=== PATIENT | male | born 1935 | race Caucasian/White ===

== ENCOUNTER → 2016-08-25 | Outpatient (CLI) | payer MEDICARE, BC ==
[~2016-08-25] VITALS: Ht 185.4 cm; Wt 110.0 kg
[~2016-08-25] MED LIST: ALLO300T74 PO; ASPI-730 PO; ATOR10TA20 PO; BISA-82 PO; FAMO20TA79 PO; INSU100I14 SQ; INSU100V SQ; INSU100V12 SQ; IRBE75TA10 PO; MULT-806 PO; NEOMYCIN/POLYM/BACITR OINT PACKET TOP ONE; OXYC10TA51 PO; OXYC1TAB11 PO; POLY17PO6 PO; POTA10TA14 PO; SENN-156 PO; SPIR25TA4 PO; TAMS-1 PO
[2016-08-25 14:18] VITALS: BP 123/78; PULSE 112; RESP 16; TEMP 96.9; O2SAT 95
[2016-08-25 14:22] VITALS: Ht 185.4 cm; Wt 110.0 kg
== END ==
LOC: INF.THER 13:56
PROVIDERS: ATTEND Internal Medicine Infectious Disease
DX: M86.9 Osteomyelitis, unspecified (principal)
CPT/HCPCS: A9270; G0463; 99211

== ENCOUNTER → 2016-08-26 | Outpatient (CLI) | payer MEDICARE, BC ==
[~2016-08-26] MED LIST changes: -ASPI-730 PO; -FAMO20TA79 PO; -INSU100I14 SQ; -INSU100V SQ; -IRBE75TA10 PO; -NEOMYCIN/POLYM/BACITR OINT PACKET TOP ONE
[2016-08-26 07:40] LABS: BASOPHILS % (AUTO) 0.2 % (0-2); EOSINOPHILS # (AUTO) 0.1 T/MM3 (0-0.5); EOSINOPHILS % (AUTO) 2.9 % (0-4); HCT - HEMATOCRIT 41.5 % (41-53); HGB - HEMOGLOBIN 13.9 GM/DL (13.5-17.5); IMMATURE GRANULOCYTE # (AUTO) 0.01 T/MM3 (0.00-0.03); IMMATURE GRANULOCYTE % (AUTO) 0.2 % (0.0-0.5); LYMPHOCYTES # (AUTO) 1.6 T/MM3 (1-4.8); LYMPHOCYTES % (AUTO) 32.9 % (23-45); MEAN CORPUSCULAR HGB 32.9 UUG (26-34); MEAN CORPUSCULAR HGB CONC(MCHC 33.5 GM/DL (31-37); MEAN CORPUSCULAR VOLUME 98.3 UM3 (80-100); MONOCYTES # (AUTO) 0.4 T/MM3 (0-0.8); MONOCYTES % (AUTO) 7.3 % (0-9.0); NEUTROPHILS #(AUTO)-ABSOLUTE 2.8 T/MM3 (1.8-7.7); NEUTROPHILS % (AUTO) 56.5 % (33-66); RED BLOOD COUNT 4.22 M/MM3 (4.50-5.90); WBC - WHITE BLOOD COUNT 4.9 T/MM3 (4.5-11.0)
[2016-08-26 07:58] LABS: ANION GAP 6 MEQ/L (5-15); BUN/CREATININE RATIO 20 RATIO (6-26); C-REACTIVE PROTEIN 6.3 MG/L (0-9); CALCIUM 9.2 MG/DL (8.4-10.2); CHLORIDE 101 MEQ/L (98-107); CO2 - CARBON DIOXIDE 30 MEQ/L (22-30); CREATININE 0.6 MG/DL (0.8-1.5); GLOMERULAR FILTRATION RATE 129; GLUCOSE 101 MG/DL (75-110); POTASSIUM 4.2 MEQ/L (3.6-5); SODIUM 137 MEQ/L (134-144)
== END ==
LOC: LABNH.AP 01:14
PROVIDERS: ATTEND Internal Medicine Infectious Disease
DX: M46.24 Osteomyelitis of vertebra, thoracic region (principal); M46.34 Infection of intervertebral disc (pyogenic), thoracic region
CPT/HCPCS: 36415; 80048; 85025; 85652; 86140; P9604

== ENCOUNTER 2016-10-21 17:50 | Inpatient (IN) ==
--- NOTE | 2016-10-21 19:12 | Emergency Department Report ---
General Adult HPI - General Chief complaint: Medical Emergency Stated complaint: Abnormal labs Time Seen by Provider: 10/21/16 18:15 Source: patient, family, old records reviewed Mode of arrival: EMS Limitations: no limitations - History of Present Illness HPI narrative: 80-year-old male was sent to the emergency department from his rehabilitation facility where he has been since May 2016 after undergoing spinal surgery. He was sent to the ED for abnormal laboratory values. The abnormal lab values were elevated potassium and decreased platelet count. Over the past "few" days the nursing staff has noted the patient to be becoming more generally weak. Patient denies any pain or discomfort currently. Patient was started on Bactrim DS for a urinary tract infection yesterday. He has had 1 dose of medication. Symptoms have been persistent with a gradual progression in nature since onset a "few" days ago. He denies any trauma or injury. No other complaints or associated symptoms. He does not note any exacerbating or remitting factors. - Related Data Home Medications Medication Instructions Recorded Confirmed Allopurinol 300 mg PO HS #0 05/16/09 10/21/16 Atorvastatin Calcium [Lipitor] 10 mg PO DAILY #0 05/16/09 10/21/16 Polyethylene Glycol 3350 [Miralax] 17 g PO DAILY #0 06/13/16 10/21/16 Potassium Chloride 10 meq PO BID #0 06/13/16 10/21/16 Sennosides [Senna] 8.6 - 17.2 mg PO BID PRN #0 tab 08/25/16 10/21/16 Spironolactone 25 mg PO BID #0 tab 08/25/16 10/21/16 Tamsulosin HCl [Flomax] 0.4 mg PO HS #0 cap 08/25/16 10/21/16 Bisacodyl Supp [Dulcolax] 10 mg RECTALLY Q6H PRN 10/21/16 10/21/16 Calmoseptine Packet [Calmoseptine] 1 applic TP BID 10/21/16 10/21/16 Insulin Glargine,Hum.rec.anlog 14 unit SQ HS 10/21/16 10/21/16 [Lantus Solostar] Insulin Lispro [Humalog] 4 unit SQ TIDWM 10/21/16 10/21/16 Oxycodone *Ir* [Roxicodone *Ir*] 5 mg PO BID 10/21/16 10/21/16 Oxycodone *Ir* [Roxicodone *Ir*] 5 mg PO TID PRN 10/21/16 10/21/16 Oxycodone/APAP 7.5/325 [Percocet 1 tab PO Q4H PRN 10/21/16 10/21/16 7.5/325] Sulfamethox/Tmp Ds *Ed Prepack 1 tab PO BID 10/21/16 10/21/16 [Bactrim Ds 800/160 *Ed Prepack*] Allergies Allergy/AdvReac Type Severity Reaction Status Date / Time metformin Allergy Unknown DIARRHEA Verified 10/21/16 18:20 Review of Systems Constitutional: Reports: weakness (generalized). Denies: fever Eyes: Denies: eye pain, vision change ENT: Denies: ear pain, throat pain Cardiovascular: Denies: chest pain, dyspnea on exertion Respiratory: Reports: cough (faint cough noted by nursing staff. ). Denies: dyspnea Gastrointestinal: Denies: abdominal pain, nausea, vomiting, diarrhea Genitourinary: Denies: urgency, dysuria Musculoskeletal: Reports: back pain (chronic). Denies: arthralgia Integumentary: Denies: erythema, rash Neurological: Reports: weakness (generalized weakness). Denies: headache Psychiatric: Denies: anxiety, depression Endocrine: Denies: fatigue, heat or cold intolerance Hematological/Lymphatic: Denies: easy bleeding, easy bruising Allergic/Immunologic: Denies: facial swelling, urticaria PFSH Patient Stated Medical History Hypertension Yes Diabetes Mellitus Type 2 Yes Cirrhosis Yes Gastroesophageal Reflux Yes Disease Other GI Yes: CONSTIPATION, ASCITES Hx Benign Prostatic Yes Hyperplasia Hx Urinary Tract Infection Yes Other Musculoskeletal Yes: OSTEOMYELITIS, GOUT Surgical History: Back surgery, cholecysectomy, Family History: Negative. - Social History Smoking status: Never smoker Substance use type: does not use Alcohol intake frequency: does not drink Physical Exam - Limitations Limitations: no limitations - General General appearance: alert, in no apparent distress - Normal Exams: Head:: Normocephalic without trauma Eyes:: Pupils are PERRLA w/ EOMI, No scleral icterus, irritation, or foreign bodies noted ENMT:: No facial trauma, nasal exudates, pharyngeal erythema, or exudates are noted Dental: No fractured, loose, or missing teeth noted Neck:: Full range of motion, without adenopathy, JVD, bruits or thyromegaly Chest/Respirations:: with good airflow, and symmetry bilaterally (faint crackles bibasilar.) Cardiovascular:: Regular rate and rhythm (HR - 126 bpm. ), without murmur or gallop, Pulses 2+ all extremities, capillary refill, <2 seconds all extremities Abdomen:: Bowel sounds positive, soft, non-tender, non-distended, no hepatosplenomegaly, masses or bruits noted Lymphatic:: No lymphadenopathy, or lymphedema noted Musculoskeletal:: No tenderness, or deformity noted, good range of motion, all extremities Integumentary:: No rashes, hives, or bruising noted, hair and nails, without abnormality Neurological:: Patient is alert, and oriented, cranial nerves, motor/sensory/ cerebellar, exams w/o gross deficits, to observation Psychiatric:: Patient exhibits, appropriate attention, emotion and affect Course Vital Signs Temperature 97.6 F 10/21/16 17:51 Pulse Rate 132 H 10/21/16 17:51 Respiratory Rate 18 10/21/16 17:51 Blood Pressure 147/81 H 10/21/16 17:51 Pulse Oximetry 96 10/21/16 17:51 Temperature 96.0 F L 10/22/16 04:00 Pulse Rate 125 H 10/22/16 04:00 Respiratory Rate 20 10/22/16 04:00 Blood Pressure 126/69 10/22/16 04:00 Pulse Oximetry 95 10/22/16 04:00 Medical Decision Making - [facility] Narrative Medical decision making narrative: Labs / imaging were discussed in detail with the patient and family and questions are answered. Patient is a do not resuscitate. Patient is given gentle IV hydration in the emergency department at 500 mL of normal saline times one. Patient was started on Levaquin 750 mg IV 1 after blood cultures and lactic acid are obtained. Sepsis was considered secondary to urinary tract infection with possible left lower lobe infiltrate at 2030. Patient is noted to have a lactic acid of 6.0. Lab was able to dip the patient's urine with the small specimen the patient was able to provide. Patient's urine dip showed leukocyte Estrace 2+ / nitrate suggestive of partially treated urinary tract infection. Patient was only started on Bactrim DS yesterday. Patient is a DO NOT RESUSCITATE and not able to receive 30 mL/kg of normal saline hydration intravenously. Patient is at risk for flash pulmonary edema secondary to potential mild fluid overload noted on chest x-ray as well as cirrhosis of the liver with elevated total bilirubin. His ejection fraction is unknown. Patient already has bibasilar crackles on exam. Patient will not be able to tolerate such a high volume of fluid infusion. This is discussed in detail with the patient who requests to only receive gentle IV hydration as patient has declined intubation should he develop respiratory failure secondary to fluid overload. Patient's potassium is 6.4 on repeat draw with some hemolysis. The hyperkalemia is discussed in detail with Dr. Huber who states that he will handle treatment of hyperkalemia. EKG does not show acute concerning findings at the time of admission. He is ordering the patient Kayexalate. I have given the patient 500 mL of normal saline intravenously times one. Patient's heart rate remains approximately 120 bpm during his emergency department stay. It is improved from his arrival at 132 bpm with a gentle IV hydration. Hospitalist will continue gentle IV hydration with close monitoring. Patient and family are in agreement with the current plan of management. Patient is admitted to the service of the hospitalist in improved condition. No further orders from accepting physician who is in agreement with the current plan of management. Levaquin was initiated in the ED and other HCAP antibiotic therapy can be added as indicated by the hospitalist. Patient was admitted to the service of Dr. Erickson after discussion with Dr. Huber who is in agreement with the current plan of management. Sepsis was considered at 2030 and IV Levaquin was ordered. - Differential Diagnosis UTI, Generalized Weakness, Tachycardia, Sepsis - Lab Data Result diagrams: 10/22/16 02:03 10/22/16 02:03 Lab Results 10/21/16 10/21/16 10/21/16 Range/Units 18:56 18:56 20:51 WBC 15.4 H (4.5-11.0) T/MM3 RBC 4.83 (4.50-5.90) M/MM3 Hgb 15.9 (13.5-17.5) GM/DL Hct 44.7 (41-53) % MCV 92.5 (80-100) UM3 MCH 32.9 (26-34) UUG MCHC 35.6 (31-37) GM/DL RDW Std Deviation 49.6 (36.9-50.2) FL Plt Count 69 L (130-400) T/MM3 MPV 10.4 (9.4-12.4) UM3 Immature Gran % (Auto) Not performed Neut % (Auto) Not performed Lymph % (Auto) Not performed [place] % (Auto) Not performed Eos % (Auto) Not performed Baso % (Auto) Not performed Neut # Not performed Lymph # Not performed [place] # Not performed Baso # Not performed Abs Immat Gran (auto) Not performed Neutrophils % (Manual) 91.0 H (33-66) % Band Neutrophils % 6.0 (0-6) % Lymphocytes % (Manual) 2.0 L (23-45) % Monocytes % (Manual) 1.0 (0-9.0) % Neutrophils # (Manual) 14.0 H (1.8-7.7) T/MM3 Band Neutrophils # 0.9 T/MM3 Lymphocytes # (Manual) 0.3 L (1-4.8) T/MM3 Monocytes # (Manual) 0.2 (0-0.8) T/MM3 RBC Morph Comment Normal Turbidity < 20 (0-20) Sodium 125 L (134-144) MEQ/L Potassium 6.5 H* (3.6-5) MEQ/L Chloride 93 L (98-107) MEQ/L Carbon Dioxide 22 (22-30) MEQ/L Anion Gap 10 (5-15) MEQ/L BUN 37.0 H (9-20) MG/DL Creatinine 1.0 (0.8-1.5) MG/DL GFR Calculation 72 BUN/Creatinine Ratio 37 H (6-26) RATIO Glucose 256 H (75-110) MG/DL Calculated Osmolality 260 L (261-280) MOSM/KG Calcium 10.4 H (8.4-10.2) MG/DL Total Bilirubin 4.00 H (0.20-1.30) MG/DL Icterus Index < 2 (0-7) AST 59 (17-59) U/L ALT 71 (21-72) U/L Alkaline Phosphatase 178 H (38-126) U/L Troponin I 0.043 (0-0.12) ng/ml Total Protein 6.2 L (6.3-8.2) G/DL Albumin 2.5 L (3.5-5.0) G/DL Globulin 3.7 H (2.4-3.6) G/DL Albumin/Globulin Ratio 0.7 L (1.1-2.2) RATIO Plasma Lactate 6.0 H* (0.6-2.2) MMOL/L Procalcitonin NG/ML Specimen Hemolysis 63 H (0-25) // Range/Units 20:51 WBC (4.5-11.0) T/MM3 RBC (4.50-5.90) M/MM3 Hgb (13.5-17.5) GM/DL Hct (41-53) % MCV (80-100) UM3 MCH (26-34) UUG MCHC (31-37) GM/DL RDW Std Deviation (36.9-50.2) FL Plt Count (130-400) T/MM3 MPV (9.4-12.4) UM3 Immature Gran % (Auto) Neut % (Auto) Lymph % (Auto) [place] % (Auto) Eos % (Auto) Baso % (Auto) Neut # Lymph # [place] # Baso # Abs Immat Gran (auto) Neutrophils % (Manual) (33-66) % Band Neutrophils % (0-6) % Lymphocytes % (Manual) (23-45) % Monocytes % (Manual) (0-9.0) % Neutrophils # (Manual) (1.8-7.7) T/MM3 Band Neutrophils # T/MM3 Lymphocytes # (Manual) (1-4.8) T/MM3 Monocytes # (Manual) (0-0.8) T/MM3 RBC Morph Comment Turbidity (0-20) Sodium (134-144) MEQ/L Potassium (3.6-5) MEQ/L Chloride (98-107) MEQ/L Carbon Dioxide (22-30) MEQ/L Anion Gap (5-15) MEQ/L BUN (9-20) MG/DL Creatinine (0.8-1.5) MG/DL GFR Calculation BUN/Creatinine Ratio (6-26) RATIO Glucose (75-110) MG/DL Calculated Osmolality (261-280) MOSM/KG Calcium (8.4-10.2) MG/DL Total Bilirubin (0.20-1.30) MG/DL Icterus Index (0-7) AST (17-59) U/L ALT (21-72) U/L Alkaline Phosphatase (38-126) U/L Troponin I (0-0.12) ng/ml Total Protein (6.3-8.2) G/DL Albumin (3.5-5.0) G/DL Globulin (2.4-3.6) G/DL Albumin/Globulin Ratio (1.1-2.2) RATIO Plasma Lactate (0.6-2.2) MMOL/L Procalcitonin 0.98 NG/ML Specimen Hemolysis (0-25) - Radiology Data CXR - Mild pulmonary congestion. Cannot rule out LLL infiltrate. - EKG Data EKG #1 EKG results narrative: Sinus tachycardia. 124 bpm. No STEMI. Right bundle-branch block. Critical Care Time Critical Care Time: Yes Total Critical Care Time: 47 Attestation: 47 minutes of critical care time was assessed to the patient due to the complex medical decision-making, need for repeated assessments at the bedside, and patient having the potential for decompensation. This time was spent documenting the medical record, assessing the patient, treating the patient, interpreting lab values, and discussion with family members. Disposition Clinical Impression: Hyperkalemia, Sepsis Acute cystitis Qualifiers: Hematuria presence: with hematuria Qualified Code(s): N30.01 - Acute cystitis with hematuria [place] [facility] [place] Condition: Improved Time of Disposition: 20:15 (admit. Dr. Erickson. DW: Dr. Huber. ) - Seen By: physician
[2016-10-21] MEDS ORDERED: NS 1,000 ML IV ONE (19:33)
[2016-10-21] MEDS ORDERED: LEVOFLOXACIN PB 750 MG/150 ML BAG IV SCH (20:30)
[2016-10-21] MEDS ORDERED: ONDANSETRON 4 MG/2 ML INJECTION IVP PRN (22:10)
[2016-10-21 22:17] VITALS: BMI 29.7
[2016-10-21] MEDS ORDERED: LIDOCAINE 2% JELLY (Urojet) 20ml MM ONE (23:00)
[2016-10-21] MEDS ORDERED: ALBUTEROL 2.5mg/3ml (0.083%) NEB AEROSOL PRN (23:11)
[2016-10-21] MEDS ORDERED: SODIUM POLYSTYRENE SULFONATE 15 GM/60 ML BOTTLE PO ONE (23:12)
[2016-10-21] MEDS ORDERED: CEFTRIAXONE 1 G in NS 100 ML IV SCH (23:15)
[2016-10-21] MEDS: NS 500 ML IV SCH (23:22)
[2016-10-21] MEDS: INSULIN ASPART 100unit/ml INJECTION SQ PRN (23:49)
--- NOTE | 2016-10-21 23:51 | History & Physical Report ---
<Pérez Huber P - Last Filed: 10/21/16 23:48> History of Present Illness Date: 10/21/16 Chief complaint: weakness HPI: Please note that the patient was seen via telemedicine with nursing assistance on 10/21/2016. Mr. Mondragon is an 80yo man with h/o DM2, cirrhosis, HTN, dyslpidemia, 05/2016 compression fracture with multiple admits since leading to [facility] placement. assists with history at the bedside. NO CAD or CVA hx. Weak over a couple of days with acute cystitis diagnosed yesterday and bactrim started. Notes occ nausea but able to eat with BM in the last day. Chronic lower abd discomfort not new or changed. Has an appetite. No sob or CP. No definite dysuria but decreased urine output with less PO. Review of Systems Review of systems: 10+ reviewed and neg aside from in HPI - Integumentary/Breasts Integumentary: Absent: erythema, rash PFSH HTN DM2 cirrhosis Surgical History: Back surgery, cholecysectomy, Family History: CAD and DM2 - Social History Smoking status: Never smoker Housing: intermediate Current occupational status: retired Medications Home Medications Medication Instructions Recorded Confirmed Type Allopurinol 300 mg PO HS #0 05/16/09 10/21/16 History Atorvastatin Calcium [Lipitor] 10 mg PO DAILY #0 05/16/09 10/21/16 History Polyethylene Glycol 3350 [Miralax] 17 g PO DAILY #0 06/13/16 10/21/16 History Potassium Chloride 10 meq PO BID #0 06/13/16 10/21/16 History Sennosides [Senna] 8.6 - 17.2 mg PO BID PRN #0 tab 08/25/16 10/21/16 History Spironolactone 25 mg PO BID #0 tab 08/25/16 10/21/16 History Tamsulosin HCl [Flomax] 0.4 mg PO HS #0 cap 08/25/16 10/21/16 History Bisacodyl Supp [Dulcolax] 10 mg RECTALLY Q6H PRN 10/21/16 10/21/16 History Calmoseptine Packet [Calmoseptine] 1 applic TP BID 10/21/16 10/21/16 History Insulin Glargine,Hum.rec.anlog 14 unit SQ HS 10/21/16 10/21/16 History [Lantus Solostar] Insulin Lispro [Humalog] 4 unit SQ TIDWM 10/21/16 10/21/16 History Oxycodone *Ir* [Roxicodone *Ir*] 5 mg PO BID 10/21/16 10/21/16 History Oxycodone *Ir* [Roxicodone *Ir*] 5 mg PO TID PRN 10/21/16 10/21/16 History Oxycodone/APAP 7.5/325 [Percocet 1 tab PO Q4H PRN 10/21/16 10/21/16 History 7.5/325] Sulfamethox/Tmp Ds *Ed Prepack 1 tab PO BID 10/21/16 10/21/16 History [Bactrim Ds 800/160 *Ed Prepack*] Allergies Allergy/AdvReac Type Severity Reaction Status Date / Time metformin Allergy Unknown DIARRHEA Verified 10/21/16 18:20 Exam Vital Signs: Temp Pulse Resp BP Pulse Ox 95.6 F L 134 H 20 145/80 H 98 10/21/16 22:06 10/21/16 22:10 10/21/16 22:05 10/21/16 22:05 10/21/16 22:05 Telemetry Rhythm: Sinus Rhythm Telemetry Ectopy: Bundle Branch Block Height: 1.85 m Weight: 102.4 kg Body Mass Index: 29.7 - Constitutional Present: no acute distress - Routine HEENT Exam Head: Present: normocephalic, atraumatic Eye: Present: EOMI, PERRL, conjunctival icterus - Routine Neck Exam Present: full ROM - Routine Respiratory Exam Present: crackles. Absent: accessory muscle use, respiratory distress - Routine Cardiovascular Exam Present: RRR, S1, S2 Comments: 2+ LE edema - Routine Abdominal Exam Present: soft, normoactive bowel sounds - Routine Neurological Exam Present: alert, oriented X3 no lateralizing signs Results - Labs CBC & Chem 7: 10/21/16 18:56 10/21/16 18:56 Assessment and Plan (1) Acute cystitis Current visit: Yes Status: Acute 10/21/16 23:55 Rocmolina now jenny long in the ED. f/u CXR for ?infiltrate although patient with no cough. Albuterol prn (2) Hyperkalemia Current visit: Yes Status: Acute 10/21/16 23:56 insulin in ED, kayexelate now. IVF and no bactrim or KCl supps labs again in the AM with telemetry and EKG within reason (3) Hyponatremia Current visit: Yes Status: Acute (4) Cirrhosis Current visit: Yes Status: Acute (5) DM2 (diabetes mellitus, type 2) Current visit: Yes Status: Acute 10/21/16 23:57 SSI, CBGs, A1C check as appears to need meds, this uncontrolled contributes to the above. (6) Dyslipidemia Current visit: Yes Status: Acute 10/21/16 23:57 statin as prior (7) Severe sepsis Current visit: Yes Status: Acute 10/21/16 23:54 Goal 30ml/ke IVF resuscitation but with cirrhosis/edema/volume up already lungs will not tolerate with rales already. f/u CXR with 2L NS and reassess with lactate in the next hours. See UTI Rx. DVT Prophylaxis: SCD's Hospital Course Summary Disclaimer: The visit summary below is not to be considered part of the above Progress Note. <Nickolas Erickson - Last Filed: 10/22/16 15:28> History of Present Illness Date: 10/22/16 [facility] Patient Stated Medical History Hypertension Yes Diabetes Mellitus Type 2 Yes Cirrhosis Yes Gastroesophageal Reflux Yes Disease Other GI Yes: CONSTIPATION, ASCITES Hx Benign Prostatic Yes Hyperplasia Hx Urinary Tract Infection Yes Other Musculoskeletal Yes: OSTEOMYELITIS, GOUT Exam Vital Signs: Temp Pulse Resp BP Pulse Ox 96.2 F L 123 H 24 136/89 98 10/22/16 12:55 10/22/16 12:55 10/22/16 12:55 10/22/16 12:55 10/22/16 12:55 Height: 6 ft 1 in Weight: 102.058 kg Results - Labs CBC & Chem 7: 10/22/16 07:57 10/22/16 07:57 Assessment and Plan (1) Hyperkalemia Current visit: Yes Status: Acute (2) Acute cystitis Current visit: Yes Status: Acute (3) Hyponatremia Current visit: Yes Status: Acute (4) Cirrhosis Current visit: Yes Status: Acute (5) DM2 (diabetes mellitus, type 2) Current visit: Yes Status: Acute (6) Dyslipidemia Current visit: Yes Status: Acute (7) Severe sepsis Current visit: Yes Status: Acute Assessment and Plan: Pt was seen and examined earlier today (9am). He reported discomfort with sensation of urinary urgency (Has a ramirez), abdominal pain, and generalized malaise. He was given Dilaudid and Ativan with improvement of his discomfort. Pt has H.O Cirrosis and has elevated lactate since he was admitted. Now he feels a bit better, but still has urinary urgency. On physical exam Pt is alert and oriented Appears to be in moderate distress due to pain. Denies any chest pain or shortness of breath. Abdomen - has diffuse pain, no rebound tenderness. Ext - no edema. Labs reviewed Plan 1) Continue monitored bed - close observation 2) Dilaudid for pain. discomfort. 3) Will add 1 time B&O supp for bladder spasms. 4) Abdominal U/S with possible tap to R/O SBP. Hospital Course Summary Disclaimer: The visit summary below is not to be considered part of the above Progress Note.
[2016-10-22] MEDS: NS 1,000 ML IV SCH ×3 (00:05→18:14)
[2016-10-22] MEDS: Oxycodone/Acetaminophen 5/325 1 TAB PO PRN ×3 (04:41→19:33)
[2016-10-22] MEDS: INSULIN ASPART 100unit/ml INJECTION SQ PRN ×3 (05:54→17:58)
--- NOTE | 2016-10-22 08:13 | XRay Report ---
Indication: abnl labs PROCEDURE: XR chest 1V: Encounter: Initial Comparison: None Findings: Subtle increased markings in both lung bases. Upper lung milner are clear. No pneumothorax or definite pleural effusion. Heart size and mediastinal contours are within normal limits. Probable hiatal hernia. Pulmonary vascularity appears normal. Impression: Faint lower lobe opacities could represent mild atelectasis, scarring or early pneumonia. .
[2016-10-22] MEDS: CEFTRIAXONE 1 G in NS 100 ML IV SCH (09:00)
[2016-10-22] MEDS ORDERED: HYDROMORPHONE 2 MG/ML INJECTION IVP PRN (09:24)
[2016-10-22] MEDS: PHENAZOPYRIDINE 95 MG TABLET PO SCH ×3 (10:18→18:56)
[2016-10-22] MEDS ORDERED: BELLADONNA-OPIUM 16.2 MG/60 MG SUPPOSITORY PR ONE (15:30)
[2016-10-22] MEDS: HYDROMORPHONE 2 MG/ML INJECTION IVP PRN ×2 (16:15→20:15)
[2016-10-22] MEDS ORDERED: LIDOCAINE 1% (10mg/ml) 30ml PF SDV STERI-PAK ONE (16:24)
--- NOTE | 2016-10-22 16:27 | Ultrasound Report ---
Indication: If ascites found please tap - SBP ? - cirrhosis PROCEDURE: US abdomen complete: Encounter: Initial Comparison: CT chest, abdomen and pelvis dated June 13, 2016 Technique: Grayscale and color Doppler sonographic imaging of the abdomen was performed. Findings: Hepatic parenchyma is nodular and cirrhotic. Left lobe is not seen due to increased shadowing. The gallbladder is surgically absent. Both the intra and extrahepatic biliary system are of normal caliber with the common duct measuring 4 mm in dimension. Pancreas could not be seen due to shadowing bowel gas. Both kidneys are present without collecting system dilatation. The right measures 11 cm in length and left measures 12.5 cm. Bilateral renal cortical thinning. The spleen is unremarkable measuring 11.9 cm. The visualized portions of the IVC are unremarkable. Aorta could not be seen due to shadowing bowel gas. Small to moderate ascites. Impression: Cirrhosis and ascites. .
[2016-10-22] MEDS ORDERED: PHYTONADIONE (Adult) INJ 10 MG in NS 50 ML IV ONE (17:00)
[2016-10-22] MEDS ORDERED: BELLADONNA-OPIUM 16.2 MG/60 MG SUPPOSITORY PR PRN (23:00)
[2016-10-23] MEDS: HYDROMORPHONE 2 MG/ML INJECTION IVP PRN ×3 (00:15→09:26)
[2016-10-23] MEDS: NS 1,000 ML IV SCH ×3 (02:49→20:27)
[2016-10-23] MEDS: INSULIN ASPART 100unit/ml INJECTION SQ PRN (06:48)
[2016-10-23] MEDS: Oxycodone/Acetaminophen 5/325 1 TAB PO PRN (07:49)
[2016-10-23] MEDS: CEFTRIAXONE 1 G in NS 100 ML IV SCH (07:49)
[2016-10-23] MEDS: PHENAZOPYRIDINE 95 MG TABLET PO SCH ×3 (09:25→18:09)
--- NOTE | 2016-10-23 09:57 | Progress Note ---
Subjective: Appears to be a bit more comfortable today; his urinary symptoms (urgency - even with his Shaikh) are better with Phenazopyridine and B&O Supp. His INR dropped under 2.0 with Vitamin K so he had his paracenthesis. Lab results do NOT suggest SBP. His states he has been somehow confused this AM. Apparently at home he has no episodes of confussion. His sleep cycle seems to be normal at home. His ammonia is a bit high. Pt HR has been steadily increasing. He appears to be fluid overloaded at this time.ABG do not show hypoxemia but pt has elevated A-a gradient. Renal function remains normal. Objective Vital signs: Temp Pulse Resp BP Pulse Ox 95.8 F L 120 H 22 138/75 96 10/23/16 07:24 10/23/16 08:02 10/23/16 08:49 10/23/16 07:24 10/23/16 08:49 Rhythm: Sinus Tachycardia Weight: 104.5 kg - Constitutional Present: moderate distress Comments: Due to pain - Routine HEENT Exam Head: Present: normocephalic, atraumatic Eye: Present: EOMI, PERRL ENT: Present: mucous membranes dry - Routine Respiratory Exam Present: dyspnea - Routine Cardiovascular Exam Present: RRR, no murmur - Routine Abdominal Exam Present: soft, distended Comments: With ascitic wave positive. - Routine Extremities Exam Absent: cyanosis, clubbing, edema - Routine Neurological Exam Present: alert, normal speech Occasional episodes of confussion - Routine Psychiatric Exam Present: normal affect Results - Labs CBC & Chem 7: 10/23/16 05:06 10/23/16 05:06 Assessment and Plan (1) Hyperkalemia Current visit: Yes Status: Acute 10/21/16 23:56 insulin in ED, kayexelate now. IVF and no bactrim or KCl supps labs again in the AM with telemetry and EKG within reason (2) Acute cystitis Current visit: Yes Status: Acute 10/21/16 23:55 Rocephin now wiht levaquin in the ED. f/u CXR for ?infiltrate although patient with no cough. Albuterol prn (3) Hyponatremia Current visit: Yes Status: Acute (4) Cirrhosis Current visit: Yes Status: Acute (5) DM2 (diabetes mellitus, type 2) Current visit: Yes Status: Acute 10/21/16 23:57 SSI, CBGs, A1C check as appears to need meds, this uncontrolled contributes to the above. (6) Dyslipidemia Current visit: Yes Status: Acute 10/21/16 23:57 statin as prior (7) Severe sepsis Current visit: Yes Status: Acute 10/21/16 23:54 Goal 30ml/ke IVF resuscitation but with cirrhosis/edema/volume up already lungs will not tolerate with rales already. f/u CXR with 2L NS and reassess with lactate in the next hours. See UTI Rx. Assessment and Plan: Pt was seen and examined earlier, when he stated he was better of his lower abdominal discomfort. Still has generalized malaise. Pt has H.O Cirrosis and has elevated lactate since he was admitted, which will be rechecked now. DIAGNOSIS 1) UTI, most likely cystitis. - Blood and urine cultures are still negative. - Pt on Levaquin, will continue. - Check PSA, CPK, Lactic Acid, Procalcitonin. - Insert a PICC line. 2) Cirrhosis of the liver with ascites, hypersplenism, thrombocytopenia and coagulopathy. - Ammonia level a bit high. - INR corrected a bit after vitamin K. - Paracenthesis - successful - fluid is negative for SBP. 3) Fluid overload ? of early pulmonary edema. ? - Check BNP - Chest X ray noted. - Will diurese (Gave 20mg of Lasix). - Will then add PO lasix for ascites. The addition of Aldactone is questionable due to hyperkalemia on admission. 4) Type II DM - Will place a PICC and start TPN if pt deteriorates. 5) Hyponatreamia likley due to cirrhosis. - Check random cortisol level now. Sepsis Assessment - Evaluation Sepsis screening result: No Definite Risk Hospital Course Summary Disclaimer: The visit summary below is not to be considered part of the above Progress Note.
--- NOTE | 2016-10-23 11:30 | XRay Report ---
INDICATION: evaluate for pleural effusions, fluid overload PROCEDURE: CHEST 2-VIEWS UPRIGHT (PA & LAT) Encounter: Initial COMPARISON: October 21, 2016 FINDINGS: Hazy airspace opacity seen in both lung bases. Small bilateral pleural effusions. No pneumothorax. Heart size and mediastinal contours are stable. Pulmonary vascularity appears congested. Impression: Small pleural effusions with mild pulmonary vascular congestion or edema. .
[2016-10-23] MEDS ORDERED: FUROSEMIDE 20 MG/2 ML INJECTION IVP ONE (11:37)
[2016-10-23] MEDS: HYDROMORPHONE 2 MG/ML INJECTION IVP SCH ×4 (12:26→23:21)
--- NOTE | 2016-10-23 13:21 | Ultrasound Report ---
Indication: ASCITES PROCEDURE: US paracentesis abd w/image: Encounter: Initial PARACENTESIS: The procedure including the benefits, risks, and alternatives were explained in detail to the patient's who was giving consent for the procedure. All of her questions were answered. She stated that they understood and wished to proceed. Informed consent was obtained. A preprocedural timeout was performed to confirm the correct patient and procedure. Using sterile technique, local xylocaine anesthesia, and sonographic guidance throughout, a paracentesis is done from a right lateral approach. 3 L of clear thin yellow fluid was taken off without complication. The fluid was sent to the laboratory for the requested diagnostic studies. Following this, the patient was taken back to his hospital room. Impression: Successful ultrasound-guided diagnostic and therapeutic paracentesis performed with 3 L of fluid removed. .
[2016-10-23] MEDS: ACETAMINOPHEN 500 MG TABLET PO SCH ×3 (14:51→21:13)
[2016-10-23] MEDS: LACTULOSE 20 GM/30 ML ORAL LIQUID PO SCH (15:58)
[2016-10-23] MEDS ORDERED: ALBUMIN HUMAN 12.5gm (25%) 50ml IV ONE (20:48)
[2016-10-23] MEDS: NS 500 ML IV SCH ×2 (23:26→23:27)
[2016-10-24] MEDS ORDERED: ACETAMINOPHEN 500 MG TABLET PO PRN (02:00)
[2016-10-24] MEDS: ACETAMINOPHEN 500 MG TABLET PO SCH (03:39)
[2016-10-24] MEDS: HYDROMORPHONE 2 MG/ML INJECTION IVP SCH ×2 (03:54→10:36)
[2016-10-24] MEDS: CEFTRIAXONE 1 G in NS 100 ML IV SCH (07:42)
[2016-10-24] MEDS: LACTULOSE 20 GM/30 ML ORAL LIQUID PO SCH (10:26)
[2016-10-24] MEDS: SALINE FLUSH 10ml SYRINGE IVF PRN ×2 (10:37→11:12)
--- NOTE | 2016-10-24 11:03 | Progress Note ---
Subjective: Pt is up in bed awake. Seems to have a lot of pain that is chronic. His bladder spasm are much improved. He sounds somehow congested and is a bit SOB. states he had a good night. Objective Vital signs: Temp Pulse Resp BP Pulse Ox 98.2 F 96 16 125/76 96 10/24/16 04:00 10/24/16 04:00 10/24/16 04:00 10/24/16 04:00 10/23/16 23:24 Rhythm: Normal Sinus Rhythm, Sinus Tachycardia Weight: 104.5 kg - Constitutional Present: mild distress - Routine HEENT Exam Head: Present: normocephalic, atraumatic Eye: Present: EOMI, PERRL - Routine Respiratory Exam Present: dyspnea, rales - Routine Cardiovascular Exam Present: RRR, S3 - Routine Abdominal Exam Present: non distended, non tender - Routine Extremities Exam Absent: cyanosis, clubbing, edema - Routine Musculoskeletal Exam Musculoskeletal: no clubbing or cyanosis - Routine Neurological Exam Present: alert, oriented X3 - Routine Psychiatric Exam Present: normal affect, cooperative Results - Labs CBC & Chem 7: 10/24/16 04:32 10/24/16 04:32 - ABG Interpretation ABG results: 10/23/16 10:40 ABG pH 7.410 ABG pCO2 42 ABG pO2 67 L ABG HCO3 27 H ABG Total CO2 27.9 H ABG O2 Saturation 93.0 L ABG Base Excess 1.7 Assessment and Plan (1) Hyperkalemia Current visit: Yes Status: Acute 10/21/16 23:56 insulin in ED, kayexelate now. IVF and no bactrim or KCl supps labs again in the AM with telemetry and EKG within reason (2) Acute cystitis Current visit: Yes Status: Acute 10/21/16 23:55 Rocephin now wiht levaquin in the ED. f/u CXR for ?infiltrate although patient with no cough. Albuterol prn (3) Hyponatremia Current visit: Yes Status: Acute (4) Cirrhosis Current visit: Yes Status: Acute (5) DM2 (diabetes mellitus, type 2) Current visit: Yes Status: Acute 10/21/16 23:57 SSI, CBGs, A1C check as appears to need meds, this uncontrolled contributes to the above. (6) Dyslipidemia Current visit: Yes Status: Acute 10/21/16 23:57 statin as prior (7) Severe sepsis Current visit: Yes Status: Acute 10/21/16 23:54 Goal 30ml/ke IVF resuscitation but with cirrhosis/edema/volume up already lungs will not tolerate with rales already. f/u CXR with 2L NS and reassess with lactate in the next hours. See UTI Rx. Assessment and Plan: Pt seems to be improving of his generalized malaise. Hie was tachycadic since admission but is now in the mid 90's. Dpes appear to be somehow SOB. DIAGNOSIS 1) UTI, most likely cystitis. Will remove Shaikh now and check PVR x 24 hrs to make sure pt does not retain urine. - Blood and urine cultures are NEGATIVE (2 blood cultures and one Urine culture - on 10/21) Repeat cultures are pending. - Pt on Levaquin (IV) - CPK yesterday - normal. Lactic acid still high but trending down (3.2). Cortisol - high at 33 (Due to acute stress) Procalcitonin repeated - 0.45. 2) Cirrhosis of the liver with ascites, hypersplenism, thrombocytopenia and coagulopathy. - Ammonia level a bit high on 10/23 - Got lactulose - mentation is better, probably as his acute stress has improved. - INR corrected a bit after vitamin K - will recheck tomorrow. - Paracenthesis - successful - fluid is negative for SBP. Cytology is PENDING. - Check hepatitis B, C screen. 3) CHF ? pt has S3 gallop - Fluid overload ? of early pulmonary edema per CXR () ? Continue with IV lasix. - Chest X ray noted. - Will consider checking a 2-D echo soon. 4) Type II DM - continue present Rx. - Start Lantus 10U/day. 5) Electrolyte abnormalities - a) Hyponatremia likley due to cirrhosis. - Cortisol (random) high. - TSH is low (probably sick euthyroid) but will check T4 and T3 b) Hypermagnesemia - Mg is up to 4 c) Hypercalcemia with Ca to 10.4 with albumin of 2.5. Pt has diffuse pains. Albumin is low but TP is normal. Will check PTH. May consider a bone survey since pt has mild anemia. 6) Jaundice with a pattern suggesting obstruction - U/S shows absent gallbladder and there is no dilatation of the ducts seen. - Cholestasis ? - Recheck in the AM + lipase and amylase. - From abdominal U/S (10/22) "............................. The gallbladder is surgically absent. Both the intra and extrahepatic biliary system are of normal caliber with the common duct measuring 4 mm in dimension. ...................." "...................... Impression: Cirrhosis and ascites. .................................." Sepsis Assessment - Evaluation Sepsis screening result: No Definite Risk Hospital Course Summary Disclaimer: The visit summary below is not to be considered part of the above Progress Note.
[2016-10-24] MEDS: FUROSEMIDE 20 MG/2 ML INJECTION IVP SCH ×2 (11:12→20:16)
[2016-10-24] MEDS: INSULIN GLARGINE 100unit/ml INJECTION SQ SCH (12:14)
[2016-10-24] MEDS: ALBUTEROL/IPRATROPIUM 2.5mg-0.5mg/3ml NEB AEROSOL SCH (19:57)
[2016-10-24] MEDS: Oxycodone/Acetaminophen 5/325 1 TAB PO PRN (20:15)
[2016-10-25] MEDS: ALBUTEROL/IPRATROPIUM 2.5mg-0.5mg/3ml NEB AEROSOL SCH ×4 (02:35→19:41)
[2016-10-25] MEDS: FUROSEMIDE 20 MG/2 ML INJECTION IVP SCH (09:09)
[2016-10-25] MEDS: CEFTRIAXONE 1 G in NS 100 ML IV SCH (09:10)
[2016-10-25] MEDS: INSULIN GLARGINE 100unit/ml INJECTION SQ SCH (09:10)
[2016-10-25] MEDS: NS FLUSH BAG 500ml IV PRN (09:11)
[2016-10-25] MEDS: LACTULOSE 20 GM/30 ML ORAL LIQUID PO SCH (09:11)
[2016-10-25] MEDS: SALINE FLUSH 10ml SYRINGE IVF PRN ×2 (09:12→09:15)
--- NOTE | 2016-10-25 13:18 | XRay Report ---
Indication: Diffuse pain, elevated Calcium and elevated Alk phos PROCEDURE: XR bone survey, 1 yr to adult: Encounter: Initial Comparison: None Findings: AP and lateral radiographs of the skull: No acute calvarial fracture. No obvious lytic or blastic calvarial lesions. AP and lateral views of the cervical spine: Straightening of the cervical alignment. No obvious acute fracture or subluxation. Severe degenerative facet and uncovertebral degenerative changes. AP view of the right ribs: No acute displaced rib fracture. No lytic rib lesions. AP view of the right humerus: No acute fracture. No lytic lesions. AP view of the right forearm: No acute fracture. No lytic lesions. AP and lateral views of the thoracic spine. Degenerative change. No acute fracture or subluxation. No pathologic fracture appreciated. AP and lateral views of the lumbar spine: No acute fracture. No lytic lesions seen. AP view of the pelvis: No acute fracture. No obvious lytic lesions. AP views of the right femur: No acute fracture. No lytic lesions. AP view of the right tibia and fibula: No acute fracture. No lytic lesions. AP view of the left ribs: No acute fracture. No lytic lesions. AP views of the left femur: No acute fracture. No lytic lesions. AP views of the left tibia and fibula: No acute fracture or dislocation. AP view of the left forearm: No acute fracture. No lytic lesions. AP view of the left humerus: No acute fracture. No lytic lesions. Impression: No pathologic lytic or blastic osseous lesions identified. .
--- NOTE | 2016-10-25 14:34 | Progress Note ---
Subjective: Still bothered by weakness and generalized malaise, states his abdominal pain ( L flank) is Tolerable. Pt has had this pain for months now. Records from [facility] requested (Re: laminectomy) Objective Vital signs: Temp Pulse Resp BP Pulse Ox 97.7 F 111 H 18 129/78 97 10/25/16 08:00 10/25/16 08:00 10/25/16 08:00 10/25/16 08:00 10/25/16 08:00 Rhythm: Sinus Tachycardia Weight: 101.2 kg - Constitutional Present: mild distress Comments: Due to pain - Routine HEENT Exam Head: Present: normocephalic, atraumatic Eye: Present: EOMI, PERRL ENT: Present: mucous membranes dry - Routine Respiratory Exam Present: CTA bilaterally - Routine Cardiovascular Exam Present: RRR, tachycardia - Routine Abdominal Exam Present: soft, non distended, non tender - Routine Extremities Exam Present: edema. Absent: cyanosis, clubbing - Routine Musculoskeletal Exam Musculoskeletal: no clubbing or cyanosis - Routine Neurological Exam Present: alert, oriented X3 - Routine Psychiatric Exam Present: cooperative, good insight, depressed Results - Labs CBC & Chem 7: 10/25/16 04:41 10/25/16 04:41 - ABG Interpretation ABG results: 10/23/16 10:40 ABG pH 7.410 ABG pCO2 42 ABG pO2 67 L ABG HCO3 27 H ABG Total CO2 27.9 H ABG O2 Saturation 93.0 L ABG Base Excess 1.7 Assessment and Plan (1) Hyperkalemia Current visit: Yes Status: Acute 10/21/16 23:56 insulin in ED, kayexelate now. IVF and no bactrim or KCl supps labs again in the AM with telemetry and EKG within reason (2) Acute cystitis Current visit: Yes Status: Acute 10/21/16 23:55 Rocephin now wiht levaquin in the ED. f/u CXR for ?infiltrate although patient with no cough. Albuterol prn (3) Hyponatremia Current visit: Yes Status: Acute (4) Cirrhosis Current visit: Yes Status: Acute (5) DM2 (diabetes mellitus, type 2) Current visit: Yes Status: Acute 10/21/16 23:57 SSI, CBGs, A1C check as appears to need meds, this uncontrolled contributes to the above. (6) Dyslipidemia Current visit: Yes Status: Acute 10/21/16 23:57 statin as prior (7) Severe sepsis Current visit: Yes Status: Acute 10/21/16 23:54 Goal 30ml/ke IVF resuscitation but with cirrhosis/edema/volume up already lungs will not tolerate with rales already. f/u CXR with 2L NS and reassess with lactate in the next hours. See UTI Rx. Assessment and Plan: This is a patient with a complex medical history including being bedbound since June of this year. He was seen, then at [facility] and was found to have an epidural abscess on T9-T10 with diskitis and vertebral Osteomyelitis that required emergent surgery. After this he apparently was not able to walk again (he states) but the notes from [place] state he was D/C on "Full weight bearing status", so this is not clear. After surgery he developed L sided abdominal pain which could correspond to residual nerve damage or due to partial SCI or both, which has been very bothersome to him; Pt has not been seen by a pain specialist. He was admitted to us with a UTI an seems to be improving. A repeat UA today still shows blood and WBC. He continues to have generalized malaise. Has been tachycardic so was placed on Beta blockers yesterday. DIAGNOSIS 1) Sepsis on admission due to UTI, most likely cystitis. Shaikh was removed yesterday - he has not retained urine - this patient has non obstructing kidney stones so this will complicate the treatment of this infection. - Blood and urine cultures are NEGATIVE (2 blood cultures and one Urine culture - on 10/21) Repeat cultures are pending. - Pt on Levaquin (IV) - Repeat UA is still showing RBC and WBC - was sent for re-culture. 2) Cirrhosis of the liver with ascites, hypersplenism, thrombocytopenia and coagulopathy. - Ammonia level a bit high on 10/23 - Got lactulose - mentation is better. - INR corrected a bit after vitamin K - will recheck tomorrow. - Paracenthesis - successful - fluid is negative for SBP. Cytology is PENDING. - Check hepatitis B, C screen. 3) CHF ? pt had S3 gallop - ? of early pulmonary edema per CXR (10/22) ? Was placed on Lasix IV and improved. - Chest X ray noted. - Will consider checking a 2-D echo soon. 4) Type II DM - continue present Rx. - Started Lantus 10U/day (10/24) 5) Electrolyte abnormalities - a) Hyponatremia likley due to cirrhosis. Na is normal today. - Cortisol is high (Random and AM - probably due to acute stress) - TSH is low (probably sick euthyroid) T4 and T3 are pending b) Hypermagnesemia - Mg is up to 4 c) Hypercalcemia with Ca to 10.4 with albumin of 2.5. Bone survey - I do not see obvious punch out lesions for a Myeloma. PTH - Normal. Ca is normal today () 6) Jaundice with a pattern suggesting obstruction - Improving - bilirrubin is coming down. - U/S shows absent gallbladder and there is no dilatation of the ducts seen. - Cholestasis ? - From abdominal U/S (10/22) "............................. The gallbladder is surgically absent. Both the intra and extrahepatic biliary system are of normal caliber with the common duct measuring 4 mm in dimension. ...................." "...................... Impression: Cirrhosis and ascites. .................................." 7) S/P T9-T10 laminectomy with diskitis - with vertebral osteomyelitis, epidural abscess and severe spinal cord compression (06/13/2016 - [facility]). He also had septicemia due to E. faecalis (Ampicillin sensitive) and the swab in his back during sugery grew - group C Strep also per NSG notes. Pt was eventually D/C to [facility] to receive 6 weeks of antibiotics. - Chronic R sided - Pt was D/C from [facility] on Oxycontin 10mg PO BID and breakthrough pain control with APAP/Opioid combination. Currently he is off pain meds. - Will give Oxycontin 10mg PO BID for now and titrate up as needed. - Per notes at [place] pt was D/C on "Full weight bearing status" but he tells me he has not been able to walk since prior to his surgery. Sepsis Assessment - Evaluation Sepsis screening result: No Definite Risk Hospital Course Summary Disclaimer: The visit summary below is not to be considered part of the above Progress Note.
[2016-10-25] MEDS: INSULIN ASPART 100unit/ml INJECTION SQ PRN ×2 (15:25→20:31)
[2016-10-26] MEDS: ALBUTEROL/IPRATROPIUM 2.5mg-0.5mg/3ml NEB AEROSOL SCH ×4 (03:08→20:23)
[2016-10-26] MEDS: SALINE FLUSH 10ml SYRINGE IVF PRN ×3 (05:54→21:05)
[2016-10-26] MEDS: LEVOFLOXACIN 750 MG TABLET PO SCH (05:56)
[2016-10-26] MEDS: INSULIN ASPART 100unit/ml INJECTION SQ PRN ×4 (06:24→21:46)
[2016-10-26] MEDS: CEFTRIAXONE 1 G in NS 100 ML IV SCH (08:03)
[2016-10-26] MEDS: INSULIN GLARGINE 100unit/ml INJECTION SQ SCH (09:23)
[2016-10-26] MEDS: LACTULOSE 20 GM/30 ML ORAL LIQUID PO SCH (09:24)
[2016-10-26] MEDS: PHYTONADIONE 5 MG/2.5 ML ORAL LIQUID PO SCH (10:49)
--- NOTE | 2016-10-26 12:46 | Progress Note ---
Subjective: Mr Mondragon appears a bit more comfortable today, he is being evaluated by PT/OT. HR has decreased to the high 90's. He remains with generalized weakness and diffuse pains. Objective Vital signs: Temp Pulse Resp BP Pulse Ox 97.1 F 96 16 130/69 97 10/26/16 08:15 10/26/16 08:15 10/26/16 09:25 10/26/16 08:15 10/26/16 09:25 Rhythm: Normal Sinus Rhythm Cardiac Ectopy: Rare PVC's Weight: 102.4 kg - Constitutional Present: mild distress - Routine HEENT Exam Head: Present: normocephalic, atraumatic Eye: Present: EOMI, PERRL ENT: Present: mucous membranes dry - Routine Cardiovascular Exam Present: RRR - Routine Abdominal Exam Present: soft, non distended, non tender - Routine Extremities Exam Absent: cyanosis, clubbing, edema - Routine Skin Exam Comments: Has a rash of recent onset in his groin. - Routine Neurological Exam Present: alert, oriented X3 Results - Labs CBC & Chem 7: 10/25/16 04:41 10/25/16 04:41 - ABG Interpretation ABG results: 10/23/16 10:40 ABG pH 7.410 ABG pCO2 42 ABG pO2 67 L ABG HCO3 27 H ABG Total CO2 27.9 H ABG O2 Saturation 93.0 L ABG Base Excess 1.7 Assessment and Plan (1) Hyperkalemia Current visit: Yes Status: Acute 10/21/16 23:56 insulin in ED, kayexelate now. IVF and no bactrim or KCl supps labs again in the AM with telemetry and EKG within reason (2) Acute cystitis Current visit: Yes Status: Acute 10/21/16 23:55 Rocephin now wiht levaquin in the ED. f/u CXR for ?infiltrate although patient with no cough. Albuterol prn (3) Hyponatremia Current visit: Yes Status: Acute (4) Cirrhosis Current visit: Yes Status: Acute (5) DM2 (diabetes mellitus, type 2) Current visit: Yes Status: Acute 10/21/16 23:57 SSI, CBGs, A1C check as appears to need meds, this uncontrolled contributes to the above. (6) Dyslipidemia Current visit: Yes Status: Acute 10/21/16 23:57 statin as prior (7) Severe sepsis Current visit: Yes Status: Acute 10/21/16 23:54 Goal 30ml/ke IVF resuscitation but with cirrhosis/edema/volume up already lungs will not tolerate with rales already. f/u CXR with 2L NS and reassess with lactate in the next hours. See UTI Rx. Assessment and Plan: This is a patient with a complex medical history including being bedbound since June of this year. He was seen, at [facility] and was found to have an epidural abscess on T9-T10 with diskitis and vertebral Osteomyelitis + spinal cord compression, this required emergent surgery (Laminectomy). After this he apparently was not able to walk again (he states) but the notes from [place] state he was D/C on "Full weight bearing status", so this is not clear. After surgery he developed L sided abdominal pain which could correspond to residual nerve damage on the T9 dermatome +/- partial SCI or both, which has been very bothersome to him; Pt has not been seen by a pain specialist. He was admitted to us with a UTI an seems to be improving. A repeat UA (10/25) still shows blood and WBC. Pt has non obstructing kidney stones so this is going to be a recurrent problem for him. Also he has had urine incontinence and is developing skin breakdown in the groin. He continues to have generalized malaise. Has been tachycardic so was placed on Beta blockers (10/26). While being given high volume IVF during his "Sepsis" phase, pt developed fluid overload and X ray suggested pulmonary edema. Records from [place] do not mention CHF. DIAGNOSIS 1) Sepsis on admission due to UTI, most likely cystitis. Ramirez was removed on - he has not retained urine - this patient has non obstructing kidney stones so this will complicate the treatment of this infection, when he had the ramirez he had severe pain requiring B&O suppositories and IV narcotics. Pt may have neurogenic bladdder related to his Spinal cord injury, so he could require his Ramirez be placed again, to avoid infection of his groin, but this would place him at increased risk of UTI/Sepsis. - Blood and urine cultures are NEGATIVE (2 blood cultures and one Urine culture - on 10/21) - Pt on Levaquin (IV) - Repeat UA is still showing RBC and WBC - Repeat urine cultures shows early growth. 2) Cirrhosis of the liver with ascites, hypersplenism, thrombocytopenia and coagulopathy. No H.O ETOH abuse so cirrhosis could be due to TROTTER related to ETOH or if pt has decreased LV function could be cardiac cirrhosis. - Ammonia level a bit high on 10/23 - On daily lactulose with clear sensorium. - INR corrected a bit after vitamin K. - Paracenthesis - successful - fluid is negative for SBP. Albumin level was very low but serum Albumin was 0.6. a) Jaundice with a pattern suggesting obstruction - Improving - bilirrubin is coming down. S/P Cholecystectomy. - U/S shows absent gallbladder and there is no dilatation of the ducts seen. - Cholestasis ? - Abdominal U/S (10/22) - > cirrhosis and ascites. - Hepatitis B, C screen and Cytology PENDING 3) CHF ? pt had S3 gallop - ? of early pulmonary edema per CXR (10/22) ? Was placed on Lasix IV and improved. - Will order a 2-E echo to assess for LV function and valvular heart disease. 4) Type II DM - continue present Rx. - Started Lantus 10U/day (10/24) will increase to 15U/day. Pt has poor oral intake once he improves may use bolus insulin (Aspart) 5) Electrolyte abnormalities - a) Hyponatremia likley due to cirrhosis - now normalized. - Cortisol is high (Random and AM - probably due to acute stress) - TSH is low (probably sick euthyroid) - T4 and T3 are pending b) Hypermagnesemia - Mg was up to 4 c) Hypercalcemia with Ca to 10.4 with albumin of 2.5. Bone survey - I do not see obvious punch out lesions for a Myeloma. PTH - Normal. Calcium normalized then. 6) S/P T9-T10 laminectomy with diskitis - with vertebral osteomyelitis, epidural abscess and severe spinal cord compression (06/13/2016 - [facility]). He also had septicemia due to E. faecalis (Ampicillin sensitive) and the swab in his back during sugery grew "group C Strep also" per NSG notes. Pt was eventually D/C to [facility] to receive 6 weeks of antibiotics. - Chronic R sided - Pt was D/C from [facility] on Oxycontin 10mg PO BID and breakthrough pain control with APAP/Opioid combination. Currently he is off pain meds. - Will give Oxycontin 10mg PO BID for now and titrate up as needed. - Per notes at [place] pt was D/C on "Full weight bearing status" but he tells me he has not been able to walk since prior to his surgery. 7) Depression - Pt is very depressed for obvious reasons. - Discussed with starting pt on Mirtazapine also for his appetite, but she was reluctant to do so PENDING LABS - ASCITIC FLUID CYTOLOGY - HEPATITIS B AND C SCREEN - 2-D ECHO - REPEAT URINE CULTURE (FINAL) Sepsis Assessment - Evaluation Sepsis screening result: No Definite Risk Hospital Course Summary Disclaimer: The visit summary below is not to be considered part of the above Progress Note.
--- NOTE | 2016-10-26 14:37 | Progress Note ---
Subjective: Pt appears to be doing a bit better today. He is more awake and conversant. Spoke with transitional care nurse as Ashley Childress who stated pt had been on Marinol for appetite but when he started eating it was D/C. Pt has very poor oral intake and has severe protein calorie malnutrition. Discussed with about starting Mirtazapine and she has agreed. Objective Vital signs: Temp Pulse Resp BP Pulse Ox 97.1 F 96 16 130/69 97 10/26/16 08:15 10/26/16 08:15 10/26/16 09:25 10/26/16 08:15 10/26/16 09:25 Rhythm: Normal Sinus Rhythm Cardiac Ectopy: Rare PVC's Weight: 102.4 kg - Constitutional Present: mild distress - Routine HEENT Exam Head: Present: normocephalic, atraumatic Eye: Present: EOMI, PERRL ENT: Present: mucous membranes dry - Routine Respiratory Exam Present: decreased breath sounds, distant breath sounds - Routine Cardiovascular Exam Present: no murmur, irregular rhythm - Routine Abdominal Exam Present: soft, non distended, non tender - Routine Exam Penile: Present: phimosis - Routine Extremities Exam Absent: cyanosis, clubbing - Routine Skin Exam Present: rash. Absent: cyanosis, erythema Comments: In the groin, pt has a rash due to urine leak. Pt has phymosis and has been trying to use the urinal but does not position it well and gets wet - Routine Neurological Exam Present: alert, oriented X3 Pt has global weakness with is moderately severe. - Routine Psychiatric Exam Present: cooperative, good insight, good judgment, depressed Results - Labs CBC & Chem 7: 10/25/16 04:41 10/25/16 04:41 - ABG Interpretation ABG results: 10/23/16 10:40 ABG pH 7.410 ABG pCO2 42 ABG pO2 67 L ABG HCO3 27 H ABG Total CO2 27.9 H ABG O2 Saturation 93.0 L ABG Base Excess 1.7 Assessment and Plan (1) Hyperkalemia Current visit: Yes Status: Acute (2) Acute cystitis Current visit: Yes Status: Acute (3) Hyponatremia Current visit: Yes Status: Acute (4) Cirrhosis Current visit: Yes Status: Acute (5) DM2 (diabetes mellitus, type 2) Current visit: Yes Status: Acute (6) Dyslipidemia Current visit: Yes Status: Acute (7) Severe sepsis Current visit: Yes Status: Acute Assessment and Plan: Assessment and Plan: This is a patient with a complex medical history including being bed-bound since June of this year. He was seen, then at [facility] and was found to have an epidural abscess on T9-T10 with diskitis and vertebral Osteomyelitis that required emergent surgery. After this he apparently was not able to walk again (he states) but the notes from [place] state he was D/C on "Full weight bearing status", so this is not clear. After surgery he developed L sided abdominal pain which could correspond to residual nerve damage on T9- T10 dermatome more so on the R side) or due to partial SCI or both, which has been very bothersome to him; Pt has not been seen by a pain specialist. He was admitted to us with a UTI and sepsis, and has stabilized. His Shaikh was removed on 10/24. A repeat UA (10/25) still shows blood and WBC. He continues to have generalized malaise, and global weakness. He has severe protein calorie malnutrition, with albumin of 0.6. He was tachycardic since admission. On 10/25 I started him on Betablockers. His HR is now under 100, but he appears to have irregular heart rate. Will check an EKG for completeness; If he has A fib he is alredy coagulopathic so will not need anticoagulation. DIAGNOSIS 1) INFECTIOUS DISEASE ASSESMENT - A) (POA) Sepsis on admission due to UTI, most likely cystitis. Shaikh was removed on 10/24 - he has not retained urine - this patient has non obstructing kidney stones so this will complicate the treatment of this infection. He feels the urge to go - just was able to urinate 100cc of concentrated urine. Per he "Always wants to go". May be having bladder spasms. - Blood and urine cultures are NEGATIVE (2 blood cultures and one Urine culture - on 10/21) Repeat cultures are pending. - Pt on Levaquin (IV) - Repeat UA is still showing RBC and WBC - was sent for re-culture and is having now "Light growth" - Bladder spams - will add Flomax tonight (pt is bedbound so orthostasis would not be a problem now) B) (HISTORY OF ....) S/P T9-T10 laminectomy for diskitis + vertebral osteomyelitis + epidural abscess and severe spinal cord compression (06/13/2016 - [facility]). He also had septicemia due to E. faecalis (Ampicillin sensitive) and the swab in his back during surgery grew - group C Strep also per NSG notes. Pt was eventually D/C to [facility] to receive 6 weeks of antibiotics. - Chronic R sided - Pt was D/C from [facility] on Oxycontin 10mg PO BID and breakthrough pain control with APAP/Opioid combination. Currently he is off pain meds. - Will give Oxycontin 10mg PO BID for now and titrate up as needed. - Per notes at [place] pt was D/C on "Full weight bearing status" but he tells me he has not been able to walk since prior to his surgery. 2) Cirrhosis of the liver with ascites, hypersplenism, thrombocytopenia and coagulopathy. No ETOH exposure. Pt has DM so Cirrhosis could be due to TROTTER -> progression to cirrhosis, however pt had an episode of fluid overload last week with what appeared to be pulmonary edema - will check a 2-D echo. (Cardiac cirrhosis ?) - Ammonia level a bit high on 10/23 - Got lactulose (Was confused) - mentation is better. - INR corrected a bit after vitamin K (minimal drop -allowed for paracenthesis to be done without FFP) - Paracenthesis - successful - fluid is negative for SBP. Cytology is PENDING. Albumin in the fluid is "less than 1.5" but serum albumin is only 0.6 so it is unknown if he would have a high SAAG once albumin normalizes. - Check hepatitis B, C screen. - Will not place on SBP prophylaxis at present. 3) CARDIAC ASSESMENT a) CHF ? pt had S3 gallop - ? of early pulmonary edema per CXR (10/22) ? Was placed on Lasix IV and improved. Now on Lasix and BB. - 2-D echo ordered (10/26) - A fib ? Will check EKG 4) ENDOCRINE ASSESMENT a) Type II DM - continue present Rx. - Was on Lantus 10 U/day (10/24) will increase to 15 U today (10/26). - No Bolus insulin yet as oral intake is very poor. b) Hyponatremia on admission. Na is normal today. Could be related to cirrhosis and CHF (Echo pending) - Cortisol is high (Random and AM - probably due to acute stress) - TSH is low, T4 is normal -> SICK EUTHYROID. 5) Severe protein calorie malnutrition - with total albumin is 0.6. Will order PAB level in the AM. - Pt was taking Marinol for a while and worked well for him, however it was stopped when his oral intake improved. Will start in the AM at 2.5 mg PO BID. - Needs to get his nutrition improved, if marinol works should not be stopped until his PAB is above normal. - Could add Megace to Marinol if not effective, but it worked before. 6) Electrolyte abnormalities - a) Hypermagnesemia - Mg was up to 4 will check in the AM. b) Hypercalcemia with Ca to 10.4 with albumin of 2.5. (Corrected Ca is 11.6) Bone survey - I do not see obvious punch out lesions for a Myeloma. PTH - Normal. Ca is normal today (10/25). Probably high due to DHT and immobility. 7) Jaundice with a pattern suggesting obstruction on admission - improving now. - U/S shows absent gallbladder and there is no dilatation of the ducts seen. - Cholestasis ? - From abdominal U/S (10/22) "Impression: Cirrhosis and ascites" .................................." 8 ) Depression - - Will start pt on Remeron 15mg PO QHS (10/26) New for today - ? of A fib - will check EKG - Started - Mirtazapine - Flomax - Will start tomorrow - Marinol (pt was on it before with excellent results) Sepsis Assessment - Evaluation Sepsis screening result: No Definite Risk Hospital Course Summary Disclaimer: The visit summary below is not to be considered part of the above Progress Note.
[2016-10-26] MEDS: TAMSULOSIN 0.4 MG CAPSULE PO SCH (21:05)
[2016-10-26] MEDS ORDERED: MIRTAZAPINE 15 MG TABLET PO SCH (22:00)
[2016-10-27] MEDS: ALBUTEROL/IPRATROPIUM 2.5mg-0.5mg/3ml NEB AEROSOL SCH ×4 (04:02→20:37)
[2016-10-27] MEDS: LEVOFLOXACIN 750 MG TABLET PO SCH (06:34)
[2016-10-27] MEDS: INSULIN ASPART 100unit/ml INJECTION SQ PRN ×3 (06:34→16:25)
[2016-10-27] MEDS: CEFTRIAXONE 1 G in NS 100 ML IV SCH (09:26)
[2016-10-27] MEDS: INSULIN GLARGINE 100unit/ml INJECTION SQ SCH (09:26)
[2016-10-27] MEDS: PHYTONADIONE 5 MG/2.5 ML ORAL LIQUID PO SCH (09:27)
[2016-10-27] MEDS: LACTULOSE 20 GM/30 ML ORAL LIQUID PO SCH (09:28)
[2016-10-27] MEDS: DRONABINOL 2.5 MG CAPSULE PO SCH ×2 (09:28→21:32)
--- NOTE | 2016-10-27 12:18 | Progress Note ---
Subjective: F/U: Sepsis, Cirrhosis Resting in bed- at bedside and notes this is about the most comfortable he has been. Very weak-too weak to sit up on side of bed; therapy has been very limited. Oral drive and intake poor. Will open eyes to command, but not verbal. Will squeeze left hand to command, but not right. Breathing unlabored. Objective Vital signs: Temperature 96.9 F 10/27/16 08:00 Pulse Rate 90 10/27/16 08:00 Respiratory Rate 12 10/27/16 09:51 Blood Pressure 137/81 10/27/16 08:00 Pulse Oximetry 93 10/27/16 09:51 Oxygen Delivery Method Room Air Oxygen Flow Rate 1 Weight: 103 kg - Constitutional Present: no acute distress, well nourished, well developed, obese, somnolent - Routine HEENT Exam Head: Present: normocephalic, atraumatic Eye: Present: EOMI, PERRL ENT: Present: mucous membranes dry - Routine Respiratory Exam Present: distant breath sounds, diminished air movement. Absent: respiratory distress, rhonchi, wheezes - Routine Cardiovascular Exam Present: RRR - Routine Abdominal Exam Present: soft, non distended, non tender. Absent: guarding, firm, rigid - Routine Extremities Exam Present: edema (+2 bilateral LE ). Absent: cyanosis, clubbing - Routine Musculoskeletal Exam Musculoskeletal: Absent: no clubbing or cyanosis, normal strength - Routine Skin Exam Present: intact, dry, warm. Absent: mottling - Routine Neurological Exam Present: CN II-XII intact, hearing grossly intact - Routine Psychiatric Exam Present: unable to assess (somnolent ) Results - Labs CBC & Chem 7: 10/27/16 04:06 10/27/16 04:06 - ABG Interpretation ABG results: 10/23/16 10:40 ABG pH 7.410 ABG pCO2 42 ABG pO2 67 L ABG HCO3 27 H ABG Total CO2 27.9 H ABG O2 Saturation 93.0 L ABG Base Excess 1.7 Assessment and Plan (1) Cirrhosis Current visit: Yes Status: Acute (2) Acute cystitis Current visit: Yes Status: Acute (3) Hyperkalemia Problem details: POA Current visit: Yes Status: Resolved (4) Hyponatremia Problem details: POA Current visit: Yes Status: Resolved (5) DM2 (diabetes mellitus, type 2) Current visit: Yes Status: Acute (6) Dyslipidemia Current visit: Yes Status: Acute (7) Severe sepsis Current visit: Yes Status: Resolved (8) Depression Current visit: Yes Status: Acute (9) Generalized weakness Current visit: Yes Status: Chronic (10) Gait instability Current visit: Yes Status: Chronic DVT Prophylaxis: SCD's Assessment and Plan: Will stop Levaquin as no kevin melisa infectious etiology found and could contribute to encephalopathy. Decrease Remeron to 7.5mg nightly - hope lower dose will stimulate appetite. Continue Megace for appetite. PT/OT as pt can tolerate - likely bed activities the most he can do now. Check on pending ECHO. EKG showing NSR. Discussed with about pt's significant decline and little gains he has main despite appropriate treatment. Worry pt failing due to his cirrhosis. Discussed about potential Hospice care , but doesn't seem ready for that. Would recommend having family to see pt as I'm not optimistic about his survival ability. would be interested in having 'House Doctor' following pt at , as it is so difficult for him to go to clinic. Will recheck CMP, CBC, Ammonia in am due to cirrhosis. Continue with supportive care. Case discussed with nursing and CM. Time spent with pt care and discussion with family 35 minutes. Sepsis Assessment - Evaluation Sepsis screening result: No Definite Risk Hospital Course Summary Disclaimer: The visit summary below is not to be considered part of the above Progress Note. Hospital Course: 10/23 1) UTI, most likely cystitis. - Blood and urine cultures are still negative. - Pt on Levaquin, will continue. - Check PSA, CPK, Lactic Acid, Procalcitonin. - Insert a PICC line. 2) Cirrhosis of the liver with ascites, hypersplenism, thrombocytopenia and coagulopathy. - Ammonia level a bit high. - INR corrected a bit after vitamin K. - Paracenthesis - successful - fluid is negative for SBP. 3) Fluid overload ? of early pulmonary edema. ? - Check BNP - Chest X ray noted. - Will diurese (Gave 20mg of Lasix). - Will then add PO lasix for ascites. The addition of Aldactone is questionable due to hyperkalemia on admission. 4) Type II DM - Will place a PICC and start TPN if pt deteriorates. 5) Hyponatreamia liksabrina due to cirrhosis. - Check random cortisol level now. 10/24 1) UTI, most likely cystitis. Will remove Shaikh now and check PVR x 24 hrs to make sure pt does not retain urine. - Blood and urine cultures are NEGATIVE (2 blood cultures and one Urine culture - on 10/21) Repeat cultures are pending. - Pt on Levaquin (IV) - CPK yesterday - normal. Lactic acid still high but trending down (3.2). Cortisol - high at 33 (Due to acute stress) Procalcitonin repeated - 0.45. 2) Cirrhosis of the liver with ascites, hypersplenism, thrombocytopenia and coagulopathy. - Ammonia level a bit high on 10/23 - Got lactulose - mentation is better, probably as his acute stress has improved. - INR corrected a bit after vitamin K - will recheck tomorrow. - Paracenthesis - successful - fluid is negative for SBP. Cytology is PENDING. - Check hepatitis B, C screen. 3) CHF ? pt has S3 gallop - Fluid overload ? of early pulmonary edema per CXR () ? Continue with IV lasix. - Chest X ray noted. - Will consider checking a 2-D echo soon. 4) Type II DM - continue present Rx. - Start Lantus 10U/day. 5) Electrolyte abnormalities - a) Hyponatremia matthew due to cirrhosis. - Cortisol (random) high. - TSH is low (probably sick euthyroid) but will check T4 and T3 b) Hypermagnesemia - Mg is up to 4 c) Hypercalcemia with Ca to 10.4 with albumin of 2.5. Pt has diffuse pains. Albumin is low but TP is normal. Will check PTH. May consider a bone survey since pt has mild anemia. 6) Jaundice with a pattern suggesting obstruction - U/S shows absent gallbladder and there is no dilatation of the ducts seen. - Cholestasis ? - Recheck in the AM + lipase and amylase. - From abdominal U/S (10/22) The gallbladder is surgically absent. Both the intra and extrahepatic biliary system are of normal caliber with the common duct measuring 4 mm in dimension. Impression: Cirrhosis and ascites. Pt with diffuse pain, elevated Calcium (Corrected Ca is 11.6) and elevated Alk Phos (even when AST/ALT was normal). Will check skeletal survey for metastasis and/or myeloma. Skeletal survey reviewed. I do not see obvious lesions C/W myeloma. Pt has calcification of the major arteries C/W very advanced Atherosclerosis. Pt with hypertension and tachycardia - also has been coughing frequently. 1) Add Metoprolol PO 25 mg PO/day to control HR as it appears this is not related to underlying infection/hypotension. 2) Add Duonebs to optimize lung toilet. 10/25 Assessment and Plan: This is a patient with a complex medical history including being bedbound since June of this year. He was seen, then at [facility] and was found to have an epidural abscess on T9-T10 with diskitis and vertebral Osteomyelitis that required emergent surgery. After this he apparently was not able to walk again (he states) but the notes from [place] state he was D/C on "Full weight bearing status", so this is not clear. After surgery he developed L sided abdominal pain which could correspond to residual nerve damage or due to partial SCI or both, which has been very bothersome to him; Pt has not been seen by a pain specialist. He was admitted to us with a UTI an seems to be improving. A repeat UA today still shows blood and WBC. He continues to have generalized malaise. Has been tachycardic so was placed on Beta blockers yesterday. 10/26 1) INFECTIOUS DISEASE ASSESMENT - A) (POA) Sepsis on admission due to UTI, most likely cystitis. Shaikh was removed on 10/24 - he has not retained urine - this patient has non obstructing kidney stones so this will complicate the treatment of this infection. He feels the urge to go - just was able to urinate 100cc of concentrated urine. Per he "Always wants to go". May be having bladder spasms. - Blood and urine cultures are NEGATIVE (2 blood cultures and one Urine culture - on 10/21) Repeat cultures are pending. - Pt on Levaquin (IV) - Repeat UA is still showing RBC and WBC - was sent for re-culture and is having now "Light growth" - Bladder spams - will add Flomax tonight (pt is bedbound so orthostasis would not be a problem now) B) (HISTORY OF ....) S/P T9-T10 laminectomy for diskitis + vertebral osteomyelitis + epidural abscess and severe spinal cord compression (06/13/2016 - [facility]). He also had septicemia due to E. faecalis (Ampicillin sensitive) and the swab in his back during surgery grew - group C Strep also per NSG notes. Pt was eventually D/C to [facility] to receive 6 weeks of antibiotics. - Chronic R sided - Pt was D/C from [facility] on Oxycontin 10mg PO BID and breakthrough pain control with APAP/Opioid combination. Currently he is off pain meds. - Will give Oxycontin 10mg PO BID for now and titrate up as needed. - Per notes at [place] pt was D/C on "Full weight bearing status" but he tells me he has not been able to walk since prior to his surgery. 2) Cirrhosis of the liver with ascites, hypersplenism, thrombocytopenia and coagulopathy. No ETOH exposure. Pt has DM so Cirrhosis could be due to TROTTER -> progression to cirrhosis, however pt had an episode of fluid overload last week with what appeared to be pulmonary edema - will check a 2-D echo. (Cardiac cirrhosis ?) - Ammonia level a bit high on 10/23 - Got lactulose (Was confused) - mentation is better. - INR corrected a bit after vitamin K (minimal drop -allowed for paracenthesis to be done without FFP) - Paracenthesis - successful - fluid is negative for SBP. Cytology is PENDING. Albumin in the fluid is "less than 1.5" but serum albumin is only 0.6 so it is unknown if he would have a high SAAG once albumin normalizes. - Check hepatitis B, C screen. - Will not place on SBP prophylaxis at present. 3) CARDIAC ASSESMENT a) CHF ? pt had S3 gallop - ? of early pulmonary edema per CXR (10/22) ? Was placed on Lasix IV and improved. Now on Lasix and BB. - 2-D echo ordered (10/26) - A fib ? Will check EKG 4) ENDOCRINE ASSESMENT a) Type II DM - continue present Rx. - Was on Lantus 10 U/day (10/24) will increase to 15 U today (10/26). - No Bolus insulin yet as oral intake is very poor. b) Hyponatremia on admission. Na is normal today. Could be related to cirrhosis and CHF (Echo pending) - Cortisol is high (Random and AM - probably due to acute stress) - TSH is low, T4 is normal -> SICK EUTHYROID. 5) Severe protein calorie malnutrition - with total albumin is 0.6. Will order PAB level in the AM. - Pt was taking Marinol for a while and worked well for him, however it was stopped when his oral intake improved. Will start in the AM at 2.5 mg PO BID. - Needs to get his nutrition improved, if marinol works should not be stopped until his PAB is above normal. - Could add Megace to Marinol if not effective, but it worked before. 6) Electrolyte abnormalities - a) Hypermagnesemia - Mg was up to 4 will check in the AM. b) Hypercalcemia with Ca to 10.4 with albumin of 2.5. (Corrected Ca is 11.6) Bone survey - I do not see obvious punch out lesions for a Myeloma. PTH - Normal. Ca is normal today (10/25). Probably high due to DHT and immobility. 7) Jaundice with a pattern suggesting obstruction on admission - improving now. - U/S shows absent gallbladder and there is no dilatation of the ducts seen. - Cholestasis ? - From abdominal U/S (10/22) "Impression: Cirrhosis and ascites" 8 ) Depression - - Will start pt on Remeron 15mg PO QHS (10/26) New for today - ? of A fib - will check EKG - Started - Mirtazapine - Flomax - Will start tomorrow - Marinol (pt was on it before with excellent results) 10/27 12:40 Will stop Levaquin as no kevin melisa infectious etiology found and could contribute to encephalopathy. Decrease Remeron to 7.5mg nightly - hope lower dose will stimulate appetite. Continue Megace for appetite. PT/OT as pt can tolerate - likely bed activities the most he can do now. Check on pending ECHO. EKG showing NSR. Discussed with about pt's significant decline and little gains he has main despite appropriate treatment. Worry pt failing due to his cirrhosis. Discussed about potential Hospice care , but doesn't seem ready for that. Would recommend having family to see pt as I'm not optimistic about his survival ability. would be interested in having 'House Doctor' following pt at , as it is so difficult for him to go to clinic. Will recheck CMP, CBC, Ammonia in am due to cirrhosis. Continue with supportive care.
[2016-10-27] MEDS: Oxycodone/Acetaminophen 5/325 1 TAB PO PRN (13:46)
[2016-10-27] MEDS: MIRTAZAPINE 15 MG TABLET PO SCH (21:32)
[2016-10-27] MEDS: TAMSULOSIN 0.4 MG CAPSULE PO SCH (21:33)
[2016-10-27] MEDS: SALINE FLUSH 10ml SYRINGE IVF PRN (21:41)
[2016-10-28] MEDS: ALBUTEROL/IPRATROPIUM 2.5mg-0.5mg/3ml NEB AEROSOL SCH ×4 (03:04→20:31)
[2016-10-28] MEDS: SALINE FLUSH 10ml SYRINGE IVF PRN ×2 (05:29→09:52)
--- NOTE | 2016-10-28 07:44 | Echocardiogram ---
DATE OF PROCEDURE October 26, [address] Nickolas Erickson This is a two-dimensional echo with spectral Doppler, color-flow and M-mode. It was obtained in a patient with pulmonary edema. Left atrial dimension is normal. Left ventricle end-diastolic dimension is normal. Left ventricular wall thickness is increased. LV systolic function is normal with ejection fraction of 60%. Right atrium is normal. Right ventricle is normal. Aortic root dimension is normal. Mitral valve annulus is calcified. Mitral valve leaflets show no stenosis. However, mild mitral regurgitation is present. Aortic valve shows fibrocalcific changes with no stenosis or insufficiency. Tricuspid valve shows mild tricuspid regurgitation with normal estimated pulmonary artery systolic pressure of 25. Pulmonary valve shows no pulmonary insufficiency. There is no pericardial effusion. IMPRESSION 1. Technically difficult study. 2. Normal LV systolic function with ejection fraction of 60%. 3. Mitral annulus calcification with mild mitral regurgitation. 4. Aortic sclerosis. 5. Mild tricuspid regurgitation with normal estimated pulmonary artery systolic pressure of 25. 6. Left ventricular hypertrophy. MTDD
[2016-10-28] MEDS: CEFTRIAXONE 1 G in NS 100 ML IV SCH (09:46)
[2016-10-28] MEDS: LACTULOSE 20 GM/30 ML ORAL LIQUID PO SCH (09:50)
[2016-10-28] MEDS: INSULIN GLARGINE 100unit/ml INJECTION SQ SCH (09:50)
[2016-10-28] MEDS: DRONABINOL 2.5 MG CAPSULE PO SCH ×2 (09:51→21:30)
[2016-10-28] MEDS: PHYTONADIONE 5 MG/2.5 ML ORAL LIQUID PO SCH (09:52)
[2016-10-28] MEDS: NS FLUSH BAG 500ml IV PRN (09:52)
--- NOTE | 2016-10-28 11:56 | Progress Note ---
Subjective: F/U: Sepsis, Cirrhosis and son at bedside. Patient doing about the same. thinks oral intake slightly better. Responds at times. Very weak in general. Pt would open eyes slightly to command and crime investigator special agent my fingers to command, but overall no spontaneous movements or verbalization. Objective Vital signs: Temperature 97.4 F 10/28/16 07:23 Pulse Rate 94 10/28/16 07:23 Respiratory Rate 18 10/28/16 09:08 Blood Pressure 102/69 10/28/16 07:23 Pulse Oximetry 93 10/28/16 09:08 Oxygen Delivery Method Room Air Oxygen Flow Rate 1 Weight: 101.6 kg - Constitutional Present: no acute distress, well nourished, well developed, somnolent. Absent: combative, agitated - Routine HEENT Exam Head: Present: normocephalic, atraumatic Eye: Present: EOMI ENT: Present: mucous membranes dry - Routine Respiratory Exam Present: decreased breath sounds, distant breath sounds, diminished air movement. Absent: accessory muscle use - Routine Cardiovascular Exam Present: RRR, S1, S2 - Routine Abdominal Exam Present: soft, non tender. Absent: rebound, guarding - Routine Extremities Exam Present: edema (+2 ). Absent: cyanosis, clubbing, non tender - Routine Musculoskeletal Exam Musculoskeletal: Present: no clubbing or cyanosis. Absent: normal strength - Routine Skin Exam Present: dry, warm. Absent: mottling - Routine Neurological Exam Present: hearing grossly intact. Absent: moving all extremities (not having spontaneus movements.) - Routine Psychiatric Exam Absent: anxious, agitated Results - Labs CBC & Chem 7: 10/28/16 05:29 10/28/16 05:29 Microbiology Results: Microbiology 10/23/16 12:00 Ascites Fluid Body Fluid Culture - Preliminary No Growth After 4 Days 10/23/16 14:22 Cath/Port/Line/Picc Blood Culture - Preliminary No Growth After 4 Days 10/23/16 14:36 Peripheral/Iv Start Blood Culture - Preliminary No Growth After 4 Days 10/25/16 11:45 Urine, Voided (Cc/notcc) Urine Culture - Final Gram Positive Organism 10/23/16 17:42 Urine Legionella Urinary Antigen - Final 10/21/16 Unknown Urine, Cath Shaikh Urine Culture - Final No Growth After 2 Days - ABG Interpretation ABG results: 10/23/16 10:40 ABG pH 7.410 ABG pCO2 42 ABG pO2 67 L ABG HCO3 27 H ABG Total CO2 27.9 H ABG O2 Saturation 93.0 L ABG Base Excess 1.7 Assessment and Plan (1) Cirrhosis Current visit: Yes Status: Acute (2) Acute cystitis Current visit: Yes Status: Acute (3) Hyperkalemia Problem details: POA Current visit: Yes Status: Resolved (4) Hyponatremia Problem details: POA Current visit: Yes Status: Resolved (5) DM2 (diabetes mellitus, type 2) Current visit: Yes Status: Acute (6) Dyslipidemia Current visit: Yes Status: Acute (7) Severe sepsis Current visit: Yes Status: Resolved (8) Depression Current visit: Yes Status: Acute (9) Generalized weakness Current visit: Yes Status: Chronic (10) Gait instability Current visit: Yes Status: Chronic DVT Prophylaxis: SCD's Resuscitation Status: Do Not Resuscitate Assessment and Plan: Discussed with at length about pt's current status and prognosis. With lack of meaningful improvement despite our treatment effort, due feel pt 's medical status not likely to improve. Code status reassess - pt report he has a DNR order preceding hospitalization (full code written at this admission). does feel DNR appropriate - he would not wish heroic resuscitation. Order for DNR written. Reviewed ECHO result with - normal cardiac performance. Arrest would be secondary to pt succumbing from his cirrhosis. Discuss about Hospice care - would consider this if not making improvements from medication changes initiated (Dianna Gonzalez) Discussed how hospice is not 'giving up,' but rather shifting the fight to work maximally for his comfort. would like to change to Dr Jorgensen in outpatient setting due to logistics of transfer in to clinic to see Dr Ashby. Will continue with therapy to try to make functional improvements - uncertain how much gains pt will make. Continue appetite stimulation. Will continue with Rocephin for antimicrobial coverage - do not feel much longer need for antibiotics warranted at this time. Will recheck CMP, CBC, Ammonia in am due to cirrhosis. Case discussed with and son. Time spent with face to face discussion 40 minutes. Emotional support provided for family. Sepsis Assessment - Evaluation Sepsis screening result: No Definite Risk Hospital Course Summary Disclaimer: The visit summary below is not to be considered part of the above Progress Note. Hospital Course: 10/23 1) UTI, most likely cystitis. - Blood and urine cultures are still negative. - Pt on Levaquin, will continue. - Check PSA, CPK, Lactic Acid, Procalcitonin. - Insert a PICC line. 2) Cirrhosis of the liver with ascites, hypersplenism, thrombocytopenia and coagulopathy. - Ammonia level a bit high. - INR corrected a bit after vitamin K. - Paracenthesis - successful - fluid is negative for SBP. 3) Fluid overload ? of early pulmonary edema. ? - Check BNP - Chest X ray noted. - Will diurese (Gave 20mg of Lasix). - Will then add PO lasix for ascites. The addition of Aldactone is questionable due to hyperkalemia on admission. 4) Type II DM - Will place a PICC and start TPN if pt deteriorates. 5) Hyponatreamia matthew due to cirrhosis. - Check random cortisol level now. 10/24 1) UTI, most likely cystitis. Will remove Shaikh now and check PVR x 24 hrs to make sure pt does not retain urine. - Blood and urine cultures are NEGATIVE (2 blood cultures and one Urine culture - on 10/21) Repeat cultures are pending. - Pt on Levaquin (IV) - CPK yesterday - normal. Lactic acid still high but trending down (3.2). Cortisol - high at 33 (Due to acute stress) Procalcitonin repeated - 0.45. 2) Cirrhosis of the liver with ascites, hypersplenism, thrombocytopenia and coagulopathy. - Ammonia level a bit high on 10/23 - Got lactulose - mentation is better, probably as his acute stress has improved. - INR corrected a bit after vitamin K - will recheck tomorrow. - Paracenthesis - successful - fluid is negative for SBP. Cytology is PENDING. - Check hepatitis B, C screen. 3) CHF ? pt has S3 gallop - Fluid overload ? of early pulmonary edema per CXR () ? Continue with IV lasix. - Chest X ray noted. - Will consider checking a 2-D echo soon. 4) Type II DM - continue present Rx. - Start Lantus 10U/day. 5) Electrolyte abnormalities - a) Hyponatremia likley due to cirrhosis. - Cortisol (random) high. - TSH is low (probably sick euthyroid) but will check T4 and T3 b) Hypermagnesemia - Mg is up to 4 c) Hypercalcemia with Ca to 10.4 with albumin of 2.5. Pt has diffuse pains. Albumin is low but TP is normal. Will check PTH. May consider a bone survey since pt has mild anemia. 6) Jaundice with a pattern suggesting obstruction - U/S shows absent gallbladder and there is no dilatation of the ducts seen. - Cholestasis ? - Recheck in the AM + lipase and amylase. - From abdominal U/S (10/22) The gallbladder is surgically absent. Both the intra and extrahepatic biliary system are of normal caliber with the common duct measuring 4 mm in dimension. Impression: Cirrhosis and ascites. Pt with diffuse pain, elevated Calcium (Corrected Ca is 11.6) and elevated Alk Phos (even when AST/ALT was normal). Will check skeletal survey for metastasis and/or myeloma. Skeletal survey reviewed. I do not see obvious lesions C/W myeloma. Pt has calcification of the major arteries C/W very advanced Atherosclerosis. Pt with hypertension and tachycardia - also has been coughing frequently. 1) Add Metoprolol PO 25 mg PO/day to control HR as it appears this is not related to underlying infection/hypotension. 2) Add Duonebs to optimize lung toilet. 10/25 Assessment and Plan: This is a patient with a complex medical history including being bedbound since June of this year. 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 After this he apparently was not able to walk again (he states) but the notes from [place] state he was D/C on "Full weight bearing status", so this is not clear. After surgery he developed L sided abdominal pain which could correspond to residual nerve damage or due to partial SCI or both, which has been very bothersome to him; Pt has not been seen by a pain specialist. He was admitted to us with a UTI an seems to be improving. A repeat UA today still shows blood and WBC. He continues to have generalized malaise. Has been tachycardic so was placed on Beta blockers yesterday. 10/26 1) INFECTIOUS DISEASE ASSESMENT - A) (POA) Sepsis on admission due to UTI, most likely cystitis. Shaikh was removed on 10/24 - he has not retained urine - this patient has non obstructing kidney stones so this will complicate the treatment of this infection. He feels the urge to go - just was able to urinate 100cc of concentrated urine. Per he "Always wants to go". May be having bladder spasms. - Blood and urine cultures are NEGATIVE (2 blood cultures and one Urine culture - on 10/21) Repeat cultures are pending. - Pt on Levaquin (IV) - Repeat UA is still showing RBC and WBC - was sent for re-culture and is having now "Light growth" - Bladder spams - will add Flomax tonight (pt is bedbound so orthostasis would not be a problem now) B) (HISTORY OF ....) S/P T9-T10 laminectomy for diskitis + vertebral osteomyelitis + epidural abscess and severe spinal cord compression (06/13/2016 - [facility]). He also had septicemia due to E. faecalis (Ampicillin sensitive) and the swab in his back during surgery grew - group C Strep also per NSG notes. Pt was eventually D/C to [facility] to receive 6 weeks of antibiotics. - Chronic R sided - Pt was D/C from [facility] on Oxycontin 10mg PO BID and breakthrough pain control with APAP/Opioid combination. Currently he is off pain meds. - Will give Oxycontin 10mg PO BID for now and titrate up as needed. - Per notes at [place] pt was D/C on "Full weight bearing status" but he tells me he has not been able to walk since prior to his surgery. 2) Cirrhosis of the liver with ascites, hypersplenism, thrombocytopenia and coagulopathy. No ETOH exposure. Pt has DM so Cirrhosis could be due to TROTTER -> progression to cirrhosis, however pt had an episode of fluid overload last week with what appeared to be pulmonary edema - will check a 2-D echo. (Cardiac cirrhosis ?) - Ammonia level a bit high on 10/23 - Got lactulose (Was confused) - mentation is better. - INR corrected a bit after vitamin K (minimal drop -allowed for paracenthesis to be done without FFP) - Paracenthesis - successful - fluid is negative for SBP. Cytology is PENDING. Albumin in the fluid is "less than 1.5" but serum albumin is only 0.6 so it is unknown if he would have a high SAAG once albumin normalizes. - Check hepatitis B, C screen. - Will not place on SBP prophylaxis at present. 3) CARDIAC ASSESMENT a) CHF ? pt had S3 gallop - ? of early pulmonary edema per CXR (10/22) ? Was placed on Lasix IV and improved. Now on Lasix and BB. - 2-D echo ordered (10/26) - A fib ? Will check EKG 4) ENDOCRINE ASSESMENT a) Type II DM - continue present Rx. - Was on Lantus 10 U/day (10/24) will increase to 15 U today (10/26). - No Bolus insulin yet as oral intake is very poor. b) Hyponatremia on admission. Na is normal today. Could be related to cirrhosis and CHF (Echo pending) - Cortisol is high (Random and AM - probably due to acute stress) - TSH is low, T4 is normal -> SICK EUTHYROID. 5) Severe protein calorie malnutrition - with total albumin is 0.6. Will order PAB level in the AM. - Pt was taking Marinol for a while and worked well for him, however it was stopped when his oral intake improved. Will start in the AM at 2.5 mg PO BID. - Needs to get his nutrition improved, if marinol works should not be stopped until his PAB is above normal. - Could add Megace to Marinol if not effective, but it worked before. 6) Electrolyte abnormalities - a) Hypermagnesemia - Mg was up to 4 will check in the AM. b) Hypercalcemia with Ca to 10.4 with albumin of 2.5. (Corrected Ca is 11.6) Bone survey - I do not see obvious punch out lesions for a Myeloma. PTH - Normal. Ca is normal today (10/25). Probably high due to DHT and immobility. 7) Jaundice with a pattern suggesting obstruction on admission - improving now. - U/S shows absent gallbladder and there is no dilatation of the ducts seen. - Cholestasis ? - From abdominal U/S (10/22) "Impression: Cirrhosis and ascites" 8 ) Depression - - Will start pt on Remeron 15mg PO QHS (10/26) New for today - ? of A fib - will check EKG - Started - Mirtazapine - Flomax - Will start tomorrow - Marinol (pt was on it before with excellent results) 10/27 12:40 Will stop Levaquin as no kevin melisa infectious etiology found and could contribute to encephalopathy. Decrease Remeron to 7.5mg nightly - hope lower dose will stimulate appetite. Continue Megace for appetite. PT/OT as pt can tolerate - likely bed activities the most he can do now. Check on pending ECHO. EKG showing NSR. Discussed with about pt's significant decline and little gains he has main despite appropriate treatment. Worry pt failing due to his cirrhosis. Discussed about potential Hospice care , but doesn't seem ready for that. Would recommend having family to see pt as I'm not optimistic about his survival ability. would be interested in having 'House Doctor' following pt at , as it is so difficult for him to go to clinic. Will recheck CMP, CBC, Ammonia in am due to cirrhosis. Continue with supportive care. 10/28/16 and son at bedside. Patient doing about the same. thinks oral intake slightly better. Responds at times. Very weak in general. Pt would open eyes slightly to command and crime investigator special agent my fingers to command, but overall no spontaneous movements or verbalization. Discussed with at length about pt's current status and prognosis. With lack of meaningful improvement despite our treatment effort, due feel pt 's medical status not likely to improve. Code status reassess - pt report he has a DNR order preceding hospitalization (full code written at this admission). does feel DNR appropriate - he would not wish heroic resuscitation. Order for DNR written. Reviewed ECHO result with - normal cardiac performance. Arrest would be secondary to pt succumbing from his cirrhosis. Discuss about Hospice care - would consider this if not making improvements from medication changes initiated (Megace, Remeron) Discussed how hospice is not 'giving up,' but rather shifting the fight to work maximally for his comfort. would like to change to Dr Jorgensen in outpatient setting due to logistics of transfer in to clinic to see Dr Ashby. Will continue with therapy to try to make functional improvements - uncertain how much gains pt will make. Continue appetite stimulation. Will continue with Rocephin for antimicrobial coverage - do not feel much longer need for antibiotics warranted at this time. Will recheck CMP, CBC, Ammonia in am due to cirrhosis.
[2016-10-28] MEDS: Oxycodone/Acetaminophen 5/325 1 TAB PO PRN ×2 (16:29→21:29)
[2016-10-28] MEDS: TAMSULOSIN 0.4 MG CAPSULE PO SCH (21:29)
[2016-10-28] MEDS: MIRTAZAPINE 15 MG TABLET PO SCH (21:31)
[2016-10-29] MEDS: ALBUTEROL/IPRATROPIUM 2.5mg-0.5mg/3ml NEB AEROSOL SCH ×4 (02:57→20:39)
[2016-10-29] MEDS: Oxycodone/Acetaminophen 5/325 1 TAB PO PRN ×2 (03:25→21:05)
[2016-10-29] MEDS: LACTULOSE 20 GM/30 ML ORAL LIQUID PO SCH (09:23)
[2016-10-29] MEDS: DRONABINOL 2.5 MG CAPSULE PO SCH (09:23)
[2016-10-29] MEDS: CEFTRIAXONE 1 G in NS 100 ML IV SCH (09:23)
[2016-10-29] MEDS: INSULIN GLARGINE 100unit/ml INJECTION SQ SCH (09:24)
[2016-10-29] MEDS: INSULIN ASPART 100unit/ml INJECTION SQ PRN ×2 (12:52→17:16)
--- NOTE | 2016-10-29 14:03 | Progress Note ---
Subjective: F/U: Sepsis, Cirrhosis Pt resting in bed. and son at bedside. Taking some food in when offers. Will communicate briefly with short phrases. Very minimal spontaneous movements-nursing reports not able to help much with positional changes. Did not to therapy this morning as he was sleeping soundly. Objective Vital signs: Temperature 96.3 F L 10/29/16 07:00 Pulse Rate 92 10/29/16 07:00 Respiratory Rate 14 10/29/16 09:41 Blood Pressure 123/77 10/29/16 07:00 Pulse Oximetry 92 10/29/16 09:41 Oxygen Delivery Method Room Air Oxygen Flow Rate 1 Weight: 101.3 kg - Constitutional Present: well nourished, somnolent - Routine HEENT Exam Head: Present: normocephalic, atraumatic ENT: Present: mucous membranes dry - Routine Respiratory Exam Present: distant breath sounds, diminished air movement. Absent: accessory muscle use, respiratory distress - Routine Cardiovascular Exam Present: RRR - Routine Abdominal Exam Present: soft, normoactive bowel sounds, non distended, non tender - Routine Extremities Exam Present: edema (+2 LE; SCD present bilaterally. ). Absent: cyanosis - Routine Skin Exam Present: intact, warm - Routine Neurological Exam Present: altered mental status (Somnolent and not interacting. ). Absent: moving all extremities - Routine Psychiatric Exam Present: unable to assess (somnolent) Results - Labs CBC & Chem 7: 10/29/16 04:32 10/29/16 04:32 Microbiology Results: Microbiology 10/23/16 14:22 Cath/Port/Line/Picc Blood Culture - Final No Growth After 5 Days 10/23/16 14:36 Peripheral/Iv Start Blood Culture - Final No Growth After 5 Days 10/23/16 12:00 Ascites Fluid Body Fluid Culture - Final No Growth After 5 Days 10/25/16 11:45 Urine, Voided (Cc/notcc) Urine Culture - Final Gram Positive Organism 10/23/16 17:42 Urine Legionella Urinary Antigen - Final 10/21/16 Unknown Urine, Cath Shaikh Urine Culture - Final No Growth After 2 Days - ABG Interpretation ABG results: 10/23/16 10:40 ABG pH 7.410 ABG pCO2 42 ABG pO2 67 L ABG HCO3 27 H ABG Total CO2 27.9 H ABG O2 Saturation 93.0 L ABG Base Excess 1.7 Assessment and Plan (1) Cirrhosis Current visit: Yes Status: Acute (2) Acute cystitis Current visit: Yes Status: Acute (3) Hyperkalemia Problem details: POA Current visit: Yes Status: Resolved (4) Hyponatremia Problem details: POA Current visit: Yes Status: Resolved (5) DM2 (diabetes mellitus, type 2) Current visit: Yes Status: Acute (6) Dyslipidemia Current visit: Yes Status: Acute (7) Severe sepsis Current visit: Yes Status: Resolved (8) Depression Current visit: Yes Status: Acute (9) Generalized weakness Current visit: Yes Status: Chronic (10) Gait instability Current visit: Yes Status: Chronic Assessment and Plan: Discussed with at length about pt's current status and prognosis. Really have not seen any meaningful gains - overall status declining. Discussed at length about his decline - not optimistic that he will make improvement. Discussed that further therapy and interventions unlikely to be beneficial. Hospice care detailed to family - they are agreeable to meet with hospice. Would like [facility] care. CM notified to help set up a meeting this afternoon. Would anticipate discharge tomorrow-do not feel further antibiotic therapy would be beneficial. Continue with current medications - would likely stop Lantus to decrease risk for hypoglycemia. Currently sugars are stable. Hold on lab draws due to potential transition to comfort care/Hospice. Case discussed with CM, , and son. Time spent with face to face discussion 45 minutes. Emotional support provided for family. Sepsis Assessment - Evaluation Sepsis screening result: No Definite Risk Hospital Course Summary Disclaimer: The visit summary below is not to be considered part of the above Progress Note. Hospital Course: 10/23 1) UTI, most likely cystitis. - Blood and urine cultures are still negative. - Pt on Levaquin, will continue. - Check PSA, CPK, Lactic Acid, Procalcitonin. - Insert a PICC line. 2) Cirrhosis of the liver with ascites, hypersplenism, thrombocytopenia and coagulopathy. - Ammonia level a bit high. - INR corrected a bit after vitamin K. - Paracenthesis - successful - fluid is negative for SBP. 3) Fluid overload ? of early pulmonary edema. ? - Check BNP - Chest X ray noted. - Will diurese (Gave 20mg of Lasix). - Will then add PO lasix for ascites. The addition of Aldactone is questionable due to hyperkalemia on admission. 4) Type II DM - Will place a PICC and start TPN if pt deteriorates. 5) Hyponatreamia matthew due to cirrhosis. - Check random cortisol level now. 10/24 1) UTI, most likely cystitis. Will remove Shaikh now and check PVR x 24 hrs to make sure pt does not retain urine. - Blood and urine cultures are NEGATIVE (2 blood cultures and one Urine culture - on 10/21) Repeat cultures are pending. - Pt on Levaquin (IV) - CPK yesterday - normal. Lactic acid still high but trending down (3.2). Cortisol - high at 33 (Due to acute stress) Procalcitonin repeated - 0.45. 2) Cirrhosis of the liver with ascites, hypersplenism, thrombocytopenia and coagulopathy. - Ammonia level a bit high on 10/23 - Got lactulose - mentation is better, probably as his acute stress has improved. - INR corrected a bit after vitamin K - will recheck tomorrow. - Paracenthesis - successful - fluid is negative for SBP. Cytology is PENDING. - Check hepatitis B, C screen. 3) CHF ? pt has S3 gallop - Fluid overload ? of early pulmonary edema per CXR () ? Continue with IV lasix. - Chest X ray noted. - Will consider checking a 2-D echo soon. 4) Type II DM - continue present Rx. - Start Lantus 10U/day. 5) Electrolyte abnormalities - a) Hyponatremia matthew due to cirrhosis. - Cortisol (random) high. - TSH is low (probably sick euthyroid) but will check T4 and T3 b) Hypermagnesemia - Mg is up to 4 c) Hypercalcemia with Ca to 10.4 with albumin of 2.5. Pt has diffuse pains. Albumin is low but TP is normal. Will check PTH. May consider a bone survey since pt has mild anemia. 6) Jaundice with a pattern suggesting obstruction - U/S shows absent gallbladder and there is no dilatation of the ducts seen. - Cholestasis ? - Recheck in the AM + lipase and amylase. - From abdominal U/S (10/22) The gallbladder is surgically absent. Both the intra and extrahepatic biliary system are of normal caliber with the common duct measuring 4 mm in dimension. Impression: Cirrhosis and ascites. Pt with diffuse pain, elevated Calcium (Corrected Ca is 11.6) and elevated Alk Phos (even when AST/ALT was normal). Will check skeletal survey for metastasis and/or myeloma. Skeletal survey reviewed. I do not see obvious lesions C/W myeloma. Pt has calcification of the major arteries C/W very advanced Atherosclerosis. Pt with hypertension and tachycardia - also has been coughing frequently. 1) Add Metoprolol PO 25 mg PO/day to control HR as it appears this is not related to underlying infection/hypotension. 2) Add Duonebs to optimize lung toilet. 10/25 Assessment and Plan: This is a patient with a complex medical history including being bedbound since June of this year. 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 After this he apparently was not able to walk again (he states) but the notes from [facility] state he was D/C on "Full weight bearing status", so this is not clear. After surgery he developed L sided abdominal pain which could correspond to residual nerve damage or due to partial SCI or both, which has been very bothersome to him; Pt has not been seen by a pain specialist. He was admitted to us with a UTI an seems to be improving. A repeat UA today still shows blood and WBC. He continues to have generalized malaise. Has been tachycardic so was placed on Beta blockers yesterday. 10/26 1) INFECTIOUS DISEASE ASSESMENT - A) (POA) Sepsis on admission due to UTI, most likely cystitis. Shaikh was removed on 10/24 - he has not retained urine - this patient has non obstructing kidney stones so this will complicate the treatment of this infection. He feels the urge to go - just was able to urinate 100cc of concentrated urine. Per he "Always wants to go". May be having bladder spasms. - Blood and urine cultures are NEGATIVE (2 blood cultures and one Urine culture - on 10/21) Repeat cultures are pending. - Pt on Levaquin (IV) - Repeat UA is still showing RBC and WBC - was sent for re-culture and is having now "Light growth" - Bladder spams - will add Flomax tonight (pt is bedbound so orthostasis would not be a problem now) B) (HISTORY OF ....) S/P T9-T10 laminectomy for diskitis + vertebral osteomyelitis + epidural abscess and severe spinal cord compression (06/13/2016 - [facility]). He also had septicemia due to E. faecalis (Ampicillin sensitive) and the swab in his back during surgery grew - group C Strep also per NSG notes. Pt was eventually D/C to [facility] to receive 6 weeks of antibiotics. - Chronic R sided - Pt was D/C from [facility] on Oxycontin 10mg PO BID and breakthrough pain control with APAP/Opioid combination. Currently he is off pain meds. - Will give Oxycontin 10mg PO BID for now and titrate up as needed. - Per notes at [facility] pt was D/C on "Full weight bearing status" but he tells me he has not been able to walk since prior to his surgery. 2) Cirrhosis of the liver with ascites, hypersplenism, thrombocytopenia and coagulopathy. No ETOH exposure. Pt has DM so Cirrhosis could be due to TROTTER -> progression to cirrhosis, however pt had an episode of fluid overload last week with what appeared to be pulmonary edema - will check a 2-D echo. (Cardiac cirrhosis ?) - Ammonia level a bit high on 10/23 - Got lactulose (Was confused) - mentation is better. - INR corrected a bit after vitamin K (minimal drop -allowed for paracenthesis to be done without FFP) - Paracenthesis - successful - fluid is negative for SBP. Cytology is PENDING. Albumin in the fluid is "less than 1.5" but serum albumin is only 0.6 so it is unknown if he would have a high SAAG once albumin normalizes. - Check hepatitis B, C screen. - Will not place on SBP prophylaxis at present. 3) CARDIAC ASSESMENT a) CHF ? pt had S3 gallop - ? of early pulmonary edema per CXR (10/22) ? Was placed on Lasix IV and improved. Now on Lasix and BB. - 2-D echo ordered (10/26) - A fib ? Will check EKG 4) ENDOCRINE ASSESMENT a) Type II DM - continue present Rx. - Was on Lantus 10 U/day (10/24) will increase to 15 U today (10/26). - No Bolus insulin yet as oral intake is very poor. b) Hyponatremia on admission. Na is normal today. Could be related to cirrhosis and CHF (Echo pending) - Cortisol is high (Random and AM - probably due to acute stress) - TSH is low, T4 is normal -> SICK EUTHYROID. 5) Severe protein calorie malnutrition - with total albumin is 0.6. Will order PAB level in the AM. - Pt was taking Marinol for a while and worked well for him, however it was stopped when his oral intake improved. Will start in the AM at 2.5 mg PO BID. - Needs to get his nutrition improved, if marinol works should not be stopped until his PAB is above normal. - Could add Megace to Marinol if not effective, but it worked before. 6) Electrolyte abnormalities - a) Hypermagnesemia - Mg was up to 4 will check in the AM. b) Hypercalcemia with Ca to 10.4 with albumin of 2.5. (Corrected Ca is 11.6) Bone survey - I do not see obvious punch out lesions for a Myeloma. PTH - Normal. Ca is normal today (10/25). Probably high due to DHT and immobility. 7) Jaundice with a pattern suggesting obstruction on admission - improving now. - U/S shows absent gallbladder and there is no dilatation of the ducts seen. - Cholestasis ? - From abdominal U/S (10/22) "Impression: Cirrhosis and ascites" 8 ) Depression - - Will start pt on Remeron 15mg PO QHS (10/26) New for today - ? of A fib - will check EKG - Started - Mirtazapine - Flomax - Will start tomorrow - Marinol (pt was on it before with excellent results) 10/27 12:40 Will stop Levaquin as no kevin melisa infectious etiology found and could contribute to encephalopathy. Decrease Remeron to 7.5mg nightly - hope lower dose will stimulate appetite. Continue Megace for appetite. PT/OT as pt can tolerate - likely bed activities the most he can do now. Check on pending ECHO. EKG showing NSR. Discussed with about pt's significant decline and little gains he has main despite appropriate treatment. Worry pt failing due to his cirrhosis. Discussed about potential Hospice care , but doesn't seem ready for that. Would recommend having family to see pt as I'm not optimistic about his survival ability. would be interested in having 'House Doctor' following pt at , as it is so difficult for him to go to clinic. Will recheck CMP, CBC, Ammonia in am due to cirrhosis. Continue with supportive care. 10/28/16 and son at bedside. Patient doing about the same. thinks oral intake slightly better. Responds at times. Very weak in general. Pt would open eyes slightly to command and residential appraiser my fingers to command, but overall no spontaneous movements or verbalization. Discussed with at length about pt's current status and prognosis. With lack of meaningful improvement despite our treatment effort, due feel pt 's medical status not likely to improve. Code status reassess - pt report he has a DNR order preceding hospitalization (full code written at this admission). does feel DNR appropriate - he would not wish heroic resuscitation. Order for DNR written. Reviewed ECHO result with - normal cardiac performance. Arrest would be secondary to pt succumbing from his cirrhosis. Discuss about Hospice care - would consider this if not making improvements from medication changes initiated (Dianna Gonzalez) Discussed how hospice is not 'giving up,' but rather shifting the fight to work maximally for his comfort. would like to change to Dr Jorgensen in outpatient setting due to logistics of transfer in to clinic to see Dr Ashby. Will continue with therapy to try to make functional improvements - uncertain how much gains pt will make. Continue appetite stimulation. Will continue with Rocephin for antimicrobial coverage - do not feel much longer need for antibiotics warranted at this time. Will recheck CMP, CBC, Ammonia in am due to cirrhosis. 10/29/16 Discussed with at length about pt's current status and prognosis. Really have not seen any meaningful gains - overall status declining. Discussed at length about his decline - not optimistic that he will make improvement. Discussed that further therapy and interventions unlikely to be beneficial. Hospice care detailed to family - they are agreeable to meet with hospice. Would like [facility] care. CM notified to help set up a meeting this afternoon. Would anticipate discharge tomorrow-do not feel further antibiotic therapy would be beneficial. Continue with current medications - would likely stop Lantus to decrease risk for hypoglycemia. Currently sugars are stable. Hold on lab draws due to potential transition to comfort care/Hospice.
[2016-10-29] MEDS ORDERED: Hyoscyamine 0.125 MG SL tab SL PRN (17:55)
[2016-10-29] MEDS: MORPHINE SULFATE 10mg/0.5ml ORAL LIQ SL PRN ×2 (18:02→23:17)
[2016-10-29] MEDS: LORazepam INTENSOL 1mg/0.5ml ORAL LIQUID SL PRN ×2 (18:51→23:17)
[2016-10-29] MEDS: SALINE FLUSH 10ml SYRINGE IVF PRN ×2 (21:04)
[2016-10-30] MEDS: ALBUTEROL/IPRATROPIUM 2.5mg-0.5mg/3ml NEB AEROSOL SCH ×2 (02:51→08:58)
[2016-10-30] MEDS: Oxycodone/Acetaminophen 5/325 1 TAB PO PRN (03:39)
[2016-10-30] MEDS: LORazepam INTENSOL 1mg/0.5ml ORAL LIQUID SL PRN (05:27)
[2016-10-30] MEDS: MORPHINE SULFATE 10mg/0.5ml ORAL LIQ SL PRN ×2 (05:28→15:08)
[2016-10-30 09:01] VITALS: O2SAT 92
[2016-10-30] MEDS: INSULIN GLARGINE 100unit/ml INJECTION SQ SCH (10:17)
--- NOTE | 2016-10-30 12:16 | Progress Note ---
Subjective: F/U: Terminal Cirrhosis Hospice met with family yesterday afternoon-appropriate for hospice care. Medication adjustments made at hospice request - SL Roxanol on lorazepam as needed. Levsin for secretions. Did have a very calm and peaceful night-slept well, pain controlled. Not able to take breakfast this morning. Not verbally interactive. Breathing appears comfortable. Not restless or agitate; appears peaceful. Objective Vital signs: Temperature 95.4 F L 10/30/16 08:00 Pulse Rate 94 10/30/16 08:00 Respiratory Rate 18 10/30/16 08:50 Blood Pressure 112/67 10/30/16 08:00 Pulse Oximetry 92 10/30/16 08:50 Oxygen Delivery Method Room Air Oxygen Flow Rate 1 Weight: 100.3 kg - Constitutional Present: no acute distress, obtunded, other (Appears comfortable and peaceful.) - Routine HEENT Exam Head: Present: normocephalic, atraumatic ENT: Present: mucous membranes dry - Routine Respiratory Exam Present: distant breath sounds, diminished air movement. Absent: accessory muscle use, respiratory distress, wheezes - Routine Cardiovascular Exam Present: RRR - Routine Abdominal Exam Present: soft, non tender, distended (Ascites ) - Routine Extremities Exam Present: edema (+3 bilateral LE) - Routine Musculoskeletal Exam Musculoskeletal: Absent: normal strength - Routine Skin Exam Present: pallor, warm - Routine Psychiatric Exam Present: unable to assess (Somnolent, obtunded. ). Absent: anxious, agitated Results - Labs CBC & Chem 7: 10/29/16 04:32 10/29/16 04:32 Microbiology Results: Microbiology 10/23/16 14:22 Cath/Port/Line/Picc Blood Culture - Final No Growth After 5 Days 10/23/16 14:36 Peripheral/Iv Start Blood Culture - Final No Growth After 5 Days 10/23/16 12:00 Ascites Fluid Body Fluid Culture - Final No Growth After 5 Days 10/25/16 11:45 Urine, Voided (Cc/notcc) Urine Culture - Final Gram Positive Organism 10/23/16 17:42 Urine Legionella Urinary Antigen - Final 10/21/16 Unknown Urine, Cath Shaikh Urine Culture - Final No Growth After 2 Days - ABG Interpretation ABG results: 10/23/16 10:40 ABG pH 7.410 ABG pCO2 42 ABG pO2 67 L ABG HCO3 27 H ABG Total CO2 27.9 H ABG O2 Saturation 93.0 L ABG Base Excess 1.7 Assessment and Plan (1) Cirrhosis Problem details: Terminal Current visit: Yes Status: Acute (2) Acute cystitis Current visit: Yes Status: Acute (3) Hyperkalemia Problem details: POA Current visit: Yes Status: Resolved (4) Hyponatremia Problem details: POA Current visit: Yes Status: Resolved (5) DM2 (diabetes mellitus, type 2) Current visit: Yes Status: Acute (6) Dyslipidemia Current visit: Yes Status: Acute (7) Severe sepsis Current visit: Yes Status: Resolved (8) Depression Current visit: Yes Status: Acute (9) Generalized weakness Current visit: Yes Status: Chronic (10) Gait instability Current visit: Yes Status: Chronic Resuscitation Status: Do Not Resuscitate Assessment and Plan: Will d/c to for hospice care with [facility]. Roxanol and lorazepam SL as needed. Patient terminal secondary to cirrhosis. Life expectancy days. Discussed with - emotional support provided. Will transfer via non emergent EMS - no other means of transport feasible. See orders for details. Case discussed with CM and . Time spent with patient care and discharge greater than 35 minutes. Sepsis Assessment - Evaluation Sepsis screening result: Severe Sepsis Risk Hospital Course Summary Disclaimer: The visit summary below is not to be considered part of the above Progress Note. Hospital Course: 10/23 1) UTI, most likely cystitis. - Blood and urine cultures are still negative. - Pt on Levaquin, will continue. - Check PSA, CPK, Lactic Acid, Procalcitonin. - Insert a PICC line. 2) Cirrhosis of the liver with ascites, hypersplenism, thrombocytopenia and coagulopathy. - Ammonia level a bit high. - INR corrected a bit after vitamin K. - Paracenthesis - successful - fluid is negative for SBP. 3) Fluid overload ? of early pulmonary edema. ? - Check BNP - Chest X ray noted. - Will diurese (Gave 20mg of Lasix). - Will then add PO lasix for ascites. The addition of Aldactone is questionable due to hyperkalemia on admission. 4) Type II DM - Will place a PICC and start TPN if pt deteriorates. 5) Hyponatreamia likley due to cirrhosis. - Check random cortisol level now. 10/24 1) UTI, most likely cystitis. Will remove Shaikh now and check PVR x 24 hrs to make sure pt does not retain urine. - Blood and urine cultures are NEGATIVE (2 blood cultures and one Urine culture - on 10/21) Repeat cultures are pending. - Pt on Levaquin (IV) - CPK yesterday - normal. Lactic acid still high but trending down (3.2). Cortisol - high at 33 (Due to acute stress) Procalcitonin repeated - 0.45. 2) Cirrhosis of the liver with ascites, hypersplenism, thrombocytopenia and coagulopathy. - Ammonia level a bit high on 10/23 - Got lactulose - mentation is better, probably as his acute stress has improved. - INR corrected a bit after vitamin K - will recheck tomorrow. - Paracenthesis - successful - fluid is negative for SBP. Cytology is PENDING. - Check hepatitis B, C screen. 3) CHF ? pt has S3 gallop - Fluid overload ? of early pulmonary edema per CXR () ? Continue with IV lasix. - Chest X ray noted. - Will consider checking a 2-D echo soon. 4) Type II DM - continue present Rx. - Start Lantus 10U/day. 5) Electrolyte abnormalities - a) Hyponatremia matthew due to cirrhosis. - Cortisol (random) high. - TSH is low (probably sick euthyroid) but will check T4 and T3 b) Hypermagnesemia - Mg is up to 4 c) Hypercalcemia with Ca to 10.4 with albumin of 2.5. Pt has diffuse pains. Albumin is low but TP is normal. Will check PTH. May consider a bone survey since pt has mild anemia. 6) Jaundice with a pattern suggesting obstruction - U/S shows absent gallbladder and there is no dilatation of the ducts seen. - Cholestasis ? - Recheck in the AM + lipase and amylase. - From abdominal U/S (10/22) The gallbladder is surgically absent. Both the intra and extrahepatic biliary system are of normal caliber with the common duct measuring 4 mm in dimension. Impression: Cirrhosis and ascites. Pt with diffuse pain, elevated Calcium (Corrected Ca is 11.6) and elevated Alk Phos (even when AST/ALT was normal). Will check skeletal survey for metastasis and/or myeloma. Skeletal survey reviewed. I do not see obvious lesions C/W myeloma. Pt has calcification of the major arteries C/W very advanced Atherosclerosis. Pt with hypertension and tachycardia - also has been coughing frequently. 1) Add Metoprolol PO 25 mg PO/day to control HR as it appears this is not related to underlying infection/hypotension. 2) Add Duonebs to optimize lung toilet. 10/25 Assessment and Plan: This is a patient with a complex medical history including being bedbound since June of this year. He was seen, then at [facility] and was found to have an epidural abscess on T9-T10 with diskitis and vertebral Osteomyelitis that required emergent surgery. After this he apparently was not able to walk again (he states) but the notes from [facility] state he was D/C on "Full weight bearing status", so this is not clear. After surgery he developed L sided abdominal pain which could correspond to residual nerve damage or due to partial SCI or both, which has been very bothersome to him; Pt has not been seen by a pain specialist. He was admitted to us with a UTI an seems to be improving. A repeat UA today still shows blood and WBC. He continues to have generalized malaise. Has been tachycardic so was placed on Beta blockers yesterday. 10/26 1) INFECTIOUS DISEASE ASSESMENT - A) (POA) Sepsis on admission due to UTI, most likely cystitis. Shaikh was removed on 10/24 - he has not retained urine - this patient has non obstructing kidney stones so this will complicate the treatment of this infection. He feels the urge to go - just was able to urinate 100cc of concentrated urine. Per he "Always wants to go". May be having bladder spasms. - Blood and urine cultures are NEGATIVE (2 blood cultures and one Urine culture - on 10/21) Repeat cultures are pending. - Pt on Levaquin (IV) - Repeat UA is still showing RBC and WBC - was sent for re-culture and is having now "Light growth" - Bladder spams - will add Flomax tonight (pt is bedbound so orthostasis would not be a problem now) B) (HISTORY OF ....) S/P T9-T10 laminectomy for diskitis + vertebral osteomyelitis + epidural abscess and severe spinal cord compression (06/13/2016 - [facility]). He also had septicemia due to E. faecalis (Ampicillin sensitive) and the swab in his back during surgery grew - group C Strep also per NSG notes. Pt was eventually D/C to [facility] to receive 6 weeks of antibiotics. - Chronic R sided - Pt was D/C from [facility] on Oxycontin 10mg PO BID and breakthrough pain control with APAP/Opioid combination. Currently he is off pain meds. - Will give Oxycontin 10mg PO BID for now and titrate up as needed. - Per notes at [facility] pt was D/C on "Full weight bearing status" but he tells me he has not been able to walk since prior to his surgery. 2) Cirrhosis of the liver with ascites, hypersplenism, thrombocytopenia and coagulopathy. No ETOH exposure. Pt has DM so Cirrhosis could be due to TROTTER -> progression to cirrhosis, however pt had an episode of fluid overload last week with what appeared to be pulmonary edema - will check a 2-D echo. (Cardiac cirrhosis ?) - Ammonia level a bit high on 10/23 - Got lactulose (Was confused) - mentation is better. - INR corrected a bit after vitamin K (minimal drop -allowed for paracenthesis to be done without FFP) - Paracenthesis - successful - fluid is negative for SBP. Cytology is PENDING. Albumin in the fluid is "less than 1.5" but serum albumin is only 0.6 so it is unknown if he would have a high SAAG once albumin normalizes. - Check hepatitis B, C screen. - Will not place on SBP prophylaxis at present. 3) CARDIAC ASSESMENT a) CHF ? pt had S3 gallop - ? of early pulmonary edema per CXR (10/22) ? Was placed on Lasix IV and improved. Now on Lasix and BB. - 2-D echo ordered (10/26) - A fib ? Will check EKG 4) ENDOCRINE ASSESMENT a) Type II DM - continue present Rx. - Was on Lantus 10 U/day (10/24) will increase to 15 U today (10/26). - No Bolus insulin yet as oral intake is very poor. b) Hyponatremia on admission. Na is normal today. Could be related to cirrhosis and CHF (Echo pending) - Cortisol is high (Random and AM - probably due to acute stress) - TSH is low, T4 is normal -> SICK EUTHYROID. 5) Severe protein calorie malnutrition - with total albumin is 0.6. Will order PAB level in the AM. - Pt was taking Marinol for a while and worked well for him, however it was stopped when his oral intake improved. Will start in the AM at 2.5 mg PO BID. - Needs to get his nutrition improved, if marinol works should not be stopped until his PAB is above normal. - Could add Megace to Marinol if not effective, but it worked before. 6) Electrolyte abnormalities - a) Hypermagnesemia - Mg was up to 4 will check in the AM. b) Hypercalcemia with Ca to 10.4 with albumin of 2.5. (Corrected Ca is 11.6) Bone survey - I do not see obvious punch out lesions for a Myeloma. PTH - Normal. Ca is normal today (10/25). Probably high due to DHT and immobility. 7) Jaundice with a pattern suggesting obstruction on admission - improving now. - U/S shows absent gallbladder and there is no dilatation of the ducts seen. - Cholestasis ? - From abdominal U/S (10/22) "Impression: Cirrhosis and ascites" 8 ) Depression - - Will start pt on Remeron 15mg PO QHS (10/26) New for today - ? of A fib - will check EKG - Started - Mirtazapine - Flomax - Will start tomorrow - Marinol (pt was on it before with excellent results) 10/27 12:40 Will stop Levaquin as no kevin melisa infectious etiology found and could contribute to encephalopathy. Decrease Remeron to 7.5mg nightly - hope lower dose will stimulate appetite. Continue Megace for appetite. PT/OT as pt can tolerate - likely bed activities the most he can do now. Check on pending ECHO. EKG showing NSR. Discussed with about pt's significant decline and little gains he has main despite appropriate treatment. Worry pt failing due to his cirrhosis. Discussed about potential Hospice care , but doesn't seem ready for that. Would recommend having family to see pt as I'm not optimistic about his survival ability. would be interested in having 'House Doctor' following pt at , as it is so difficult for him to go to clinic. Will recheck CMP, CBC, Ammonia in am due to cirrhosis. Continue with supportive care. 10/28/16 and son at bedside. Patient doing about the same. thinks oral intake slightly better. Responds at times. Very weak in general. Pt would open eyes slightly to command and beam saw operator my fingers to command, but overall no spontaneous movements or verbalization. Discussed with at length about pt's current status and prognosis. With lack of meaningful improvement despite our treatment effort, due feel pt 's medical status not likely to improve. Code status reassess - pt report he has a DNR order preceding hospitalization (full code written at this admission). does feel DNR appropriate - he would not wish heroic resuscitation. Order for DNR written. Reviewed ECHO result with - normal cardiac performance. Arrest would be secondary to pt succumbing from his cirrhosis. Discuss about Hospice care - would consider this if not making improvements from medication changes initiated (Dianna Gonzalez) Discussed how hospice is not 'giving up,' but rather shifting the fight to work maximally for his comfort. would like to change to Dr Jorgensen in outpatient setting due to logistics of transfer in to clinic to see Dr Ashby. Will continue with therapy to try to make functional improvements - uncertain how much gains pt will make. Continue appetite stimulation. Will continue with Rocephin for antimicrobial coverage - do not feel much longer need for antibiotics warranted at this time. Will recheck CMP, CBC, Ammonia in am due to cirrhosis. 10/29/16 Discussed with at length about pt's current status and prognosis. Really have not seen any meaningful gains - overall status declining. Discussed at length about his decline - not optimistic that he will make improvement. Discussed that further therapy and interventions unlikely to be beneficial. Hospice care detailed to family - they are agreeable to meet with hospice. Would like [facility] care. CM notified to help set up a meeting this afternoon. Would anticipate discharge tomorrow-do not feel further antibiotic therapy would be beneficial. Continue with current medications - would likely stop Lantus to decrease risk for hypoglycemia. Currently sugars are stable. Hold on lab draws due to potential transition to comfort care/Hospice. 10/30/16 Hospice met with family yesterday afternoon-appropriate for hospice care. Medication adjustments made at hospice request - SL Roxanol on lorazepam as needed. Levsin for secretions. Did have a very calm and peaceful night-slept well, pain controlled. Not able to take breakfast this morning. Not verbally interactive. Breathing appears comfortable. Not restless or agitate; appears peaceful. Will d/c to [facility] for hospice care with [facility]. Roxanol and lorazepam SL as needed. Stop all medications and treatments not needed to provide patient comfort. Patient terminal secondary to cirrhosis. Life expectancy days. Discussed with - emotional support provided. Will transfer via non emergent EMS - no other means of transport feasible. See orders for details.
[2016-10-30] MEDS ORDERED: CALMOSEPTINE OINTMENT 113gm TUBE TP PRN (12:20)
--- NOTE | 2016-10-30 13:00 | Discharge Summary ---
Discharge Information Date of admission: 10/21/16 20:53 Anticipated date of discharge: 10/30/16 Attending Physician: Jose M Blackburn MD Primary care physician: Jostin Ashby MD Consults: 10/21/16 23:05 Dietary Consult [CONS] Routine Comment: Reason For Exam: 10/22/16 13:25 Doctor [Physician Consult] [CONS] Routine Consulting Provider: Mariposa Childress Reason For Exam: continued care Ordering Provider has Notified Poultry Raiser: Yes 10/26/16 IRU Screening [Inpatient Rehab Screening] [CONS] Routine Screen requested by:: Physician 10/29/16 13:59 Hospice Consult [CONS] Routine Comment: [facility] - Discharge Diagnosis (1) Cirrhosis Qualifiers: Hepatic cirrhosis type: unspecified hepatic cirrhosis Ascites presence: with ascites Qualified Code(s): K74.60 - Unspecified cirrhosis of liver Problem Details: Terminal Status: Acute (2) Acute cystitis Qualifiers: Hematuria presence: with hematuria Qualified Code(s): N30.01 - Acute cystitis with hematuria Status: Acute (3) Hyperkalemia Problem Details: POA Status: Resolved (4) Hyponatremia Problem Details: POA Status: Resolved (5) DM2 (diabetes mellitus, type 2) Qualifiers: Diabetes mellitus complication status: without complication Diabetes mellitus shelter insulin use: with superintendent [employer] use Qualified Code(s): E11.9 - Type 2 diabetes mellitus without complications; Z79.4 - long-term (current) use of insulin Status: Chronic (6) Dyslipidemia Status: Chronic (7) Severe sepsis Status: Resolved (8) Depression Qualifiers: Depression Type: unspecified Qualified Code(s): F32.9 - Major depressive disorder, single episode, unspecified Status: Chronic (9) Generalized weakness Status: Chronic (10) Gait instability Status: Chronic - Procedures Procedures: Date of Exam: 10/22/16 Type of Exam(s): US abdomen complete Indication: If ascites found please tap - SBP ? - cirrhosis PROCEDURE: US abdomen complete Comparison: CT chest, abdomen and pelvis dated June 13, 2016 Findings: Hepatic parenchyma is nodular and cirrhotic. Left lobe is not seen due to increased shadowing. The gallbladder is surgically absent. Both the intra and extrahepatic biliary system are of normal caliber with the common duct measuring 4 mm in dimension. Pancreas could not be seen due to shadowing bowel gas. Both kidneys are present without collecting system dilatation. The right measures 11 cm in length and left measures 12.5 cm. Bilateral renal cortical thinning. The spleen is unremarkable measuring 11.9 cm. The visualized portions of the IVC are unremarkable. Aorta could not be seen due to shadowing bowel gas. Small to moderate ascites. Impression: Cirrhosis and ascites. Date of Exam: 10/23/16 Ordering Provider: BÁRBARA ACOSTA MD Reason for Exam(s): ASCITES Indication: ASCITES PROCEDURE: US paracentesis abd w/image: PARACENTESIS: The procedure including the benefits, risks, and alternatives were explained in detail to the patient's who was giving consent for the procedure. All of her questions were answered. She stated that they understood and wished to proceed. Informed consent was obtained. A preprocedural timeout was performed to confirm the correct patient and procedure. Using sterile technique, local xylocaine anesthesia, and sonographic guidance throughout, a paracentesis is done from a right lateral approach. 3 L of clear thin yellow fluid was taken off without complication. The fluid was sent to the laboratory for the requested diagnostic studies. Following this, the patient was taken back to his hospital room. Impression: Successful ultrasound-guided diagnostic and therapeutic paracentesis performed with 3 L of fluid removed. US echo doppler complete DATE OF PROCEDURE: October 26, 2016 REFERRING PHYSICIAN: Dr. Nickolas Erickson This is a two-dimensional echo with spectral Doppler, color-flow and M-mode. It was obtained in a patient with pulmonary edema. Left atrial dimension is normal. Left ventricle end-diastolic dimension is normal. Left ventricular wall thickness is increased. LV systolic function is normal with ejection fraction of 60%. Right atrium is normal. Right ventricle is normal. Aortic root dimension is normal. Mitral valve annulus is calcified. Mitral valve leaflets show no stenosis. However, mild mitral regurgitation is present. Aortic valve shows fibrocalcific changes with no stenosis or insufficiency. Tricuspid valve shows mild tricuspid regurgitation with normal estimated pulmonary artery systolic pressure of 25. Pulmonary valve shows no pulmonary insufficiency. There is no pericardial effusion. IMPRESSION 1. Technically difficult study. 2. Normal LV systolic function with ejection fraction of 60%. 3. Mitral annulus calcification with mild mitral regurgitation. 4. Aortic sclerosis. 5. Mild tricuspid regurgitation with normal estimated pulmonary artery systolic pressure of 25. 6. Left ventricular hypertrophy. - Laboratory Labs: 10/29/16 04:32 10/29/16 04:32 - Microbiology Microbiology 10/23/16 14:22 Cath/Port/Line/Picc Blood Culture - Final No Growth After 5 Days 10/23/16 14:36 Peripheral/Iv Start Blood Culture - Final No Growth After 5 Days 10/23/16 12:00 Ascites Fluid Body Fluid Culture - Final No Growth After 5 Days 10/25/16 11:45 Urine, Voided (Cc/notcc) Urine Culture - Final Gram Positive Organism 10/23/16 17:42 Urine Legionella Urinary Antigen - Final 10/21/16 Unknown Urine, Cath Shaikh Urine Culture - Final No Growth After 2 Days History of Present Illness HPI: Mr. Mondragon is an 80yo man with h/o DM2, cirrhosis, HTN, dyslpidemia, 05/2016 compression fracture with multiple admits since leading to [facility] [place] placement. assists with history at the bedside. NO CAD or CVA hx. Weak over a couple of days with acute cystitis diagnosed yesterday and bactrim started. Notes occ nausea but able to eat with BM in the last day. Chronic lower abd discomfort not new or changed. Has an appetite. No sob or CP. No definite dysuria but decreased urine output with less PO. For complete details of the H&P, refer to that document. Objective Vital signs: Temperature 95.4 F L 10/30/16 08:00 Pulse Rate 94 10/30/16 08:00 Respiratory Rate 18 10/30/16 08:50 Blood Pressure 112/67 10/30/16 08:00 Pulse Oximetry 92 10/30/16 08:50 Oxygen Delivery Method Room Air Oxygen Flow Rate 1 Weight: 100.3 kg Hospital Course This is a general summary of the patient's hospital course. For more details refer to the complete medical record. Hospital course: 10/23 1) UTI, most likely cystitis. - Blood and urine cultures are still negative. - Pt on Levaquin, will continue. - Check PSA, CPK, Lactic Acid, Procalcitonin. - Insert a PICC line. 2) Cirrhosis of the liver with ascites, hypersplenism, thrombocytopenia and coagulopathy. - Ammonia level a bit high. - INR corrected a bit after vitamin K. - Paracenthesis - successful - fluid is negative for SBP. 3) Fluid overload ? of early pulmonary edema. ? - Check BNP - Chest X ray noted. - Will diurese (Gave 20mg of Lasix). - Will then add PO lasix for ascites. The addition of Aldactone is questionable due to hyperkalemia on admission. 4) Type II DM - Will place a PICC and start TPN if pt deteriorates. 5) Hyponatreamia likley due to cirrhosis. - Check random cortisol level now. 10/24 1) UTI, most likely cystitis. Will remove Shaikh now and check PVR x 24 hrs to make sure pt does not retain urine. - Blood and urine cultures are NEGATIVE (2 blood cultures and one Urine culture - on 10/21) Repeat cultures are pending. - Pt on Levaquin (IV) - CPK yesterday - normal. Lactic acid still high but trending down (3.2). Cortisol - high at 33 (Due to acute stress) Procalcitonin repeated - 0.45. 2) Cirrhosis of the liver with ascites, hypersplenism, thrombocytopenia and coagulopathy. - Ammonia level a bit high on 10/23 - Got lactulose - mentation is better, probably as his acute stress has improved. - INR corrected a bit after vitamin K - will recheck tomorrow. - Paracenthesis - successful - fluid is negative for SBP. Cytology is PENDING. - Check hepatitis B, C screen. 3) CHF ? pt has S3 gallop - Fluid overload ? of early pulmonary edema per CXR () ? Continue with IV lasix. - Chest X ray noted. - Will consider checking a 2-D echo soon. 4) Type II DM - continue present Rx. - Start Lantus 10U/day. 5) Electrolyte abnormalities - a) Hyponatremia likley due to cirrhosis. - Cortisol (random) high. - TSH is low (probably sick euthyroid) but will check T4 and T3 b) Hypermagnesemia - Mg is up to 4 c) Hypercalcemia with Ca to 10.4 with albumin of 2.5. Pt has diffuse pains. Albumin is low but TP is normal. Will check PTH. May consider a bone survey since pt has mild anemia. 6) Jaundice with a pattern suggesting obstruction - U/S shows absent gallbladder and there is no dilatation of the ducts seen. - Cholestasis ? - Recheck in the AM + lipase and amylase. - From abdominal U/S (10/22) The gallbladder is surgically absent. Both the intra and extrahepatic biliary system are of normal caliber with the common duct measuring 4 mm in dimension. Impression: Cirrhosis and ascites. Pt with diffuse pain, elevated Calcium (Corrected Ca is 11.6) and elevated Alk Phos (even when AST/ALT was normal). Will check skeletal survey for metastasis and/or myeloma. Skeletal survey reviewed. I do not see obvious lesions C/W myeloma. Pt has calcification of the major arteries C/W very advanced Atherosclerosis. Pt with hypertension and tachycardia - also has been coughing frequently. 1) Add Metoprolol PO 25 mg PO/day to control HR as it appears this is not related to underlying infection/hypotension. 2) Add Duonebs to optimize lung toilet. 10/25 Assessment and Plan: This is a patient with a complex medical history including being bedbound since June of this year. 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 After this he apparently was not able to walk again (he states) but the notes from [place] state he was D/C on "Full weight bearing status", so this is not clear. After surgery he developed L sided abdominal pain which could correspond to residual nerve damage or due to partial SCI or both, which has been very bothersome to him; Pt has not been seen by a pain specialist. He was admitted to us with a UTI an seems to be improving. A repeat UA today still shows blood and WBC. He continues to have generalized malaise. Has been tachycardic so was placed on Beta blockers yesterday. 10/26 1) INFECTIOUS DISEASE ASSESMENT - A) (POA) Sepsis on admission due to UTI, most likely cystitis. Shaikh was removed on 10/24 - he has not retained urine - this patient has non obstructing kidney stones so this will complicate the treatment of this infection. He feels the urge to go - just was able to urinate 100cc of concentrated urine. Per he "Always wants to go". May be having bladder spasms. - Blood and urine cultures are NEGATIVE (2 blood cultures and one Urine culture - on 10/21) Repeat cultures are pending. - Pt on Levaquin (IV) - Repeat UA is still showing RBC and WBC - was sent for re-culture and is having now "Light growth" - Bladder spams - will add Flomax tonight (pt is bedbound so orthostasis would not be a problem now) B) (HISTORY OF ....) S/P T9-T10 laminectomy for diskitis + vertebral osteomyelitis + epidural abscess and severe spinal cord compression (06/13/2016 - [facility]). He also had septicemia due to E. faecalis (Ampicillin sensitive) and the swab in his back during surgery grew - group C Strep also per NSG notes. Pt was eventually D/C to [facility] to receive 6 weeks of antibiotics. - Chronic R sided - Pt was D/C from [facility] on Oxycontin 10mg PO BID and breakthrough pain control with APAP/Opioid combination. Currently he is off pain meds. - Will give Oxycontin 10mg PO BID for now and titrate up as needed. - Per notes at [place] pt was D/C on "Full weight bearing status" but he tells me he has not been able to walk since prior to his surgery. 2) Cirrhosis of the liver with ascites, hypersplenism, thrombocytopenia and coagulopathy. No ETOH exposure. Pt has DM so Cirrhosis could be due to TROTTER -> progression to cirrhosis, however pt had an episode of fluid overload last week with what appeared to be pulmonary edema - will check a 2-D echo. (Cardiac cirrhosis ?) - Ammonia level a bit high on 10/23 - Got lactulose (Was confused) - mentation is better. - INR corrected a bit after vitamin K (minimal drop -allowed for paracenthesis to be done without FFP) - Paracenthesis - successful - fluid is negative for SBP. Cytology is PENDING. Albumin in the fluid is "less than 1.5" but serum albumin is only 0.6 so it is unknown if he would have a high SAAG once albumin normalizes. - Check hepatitis B, C screen. - Will not place on SBP prophylaxis at present. 3) CARDIAC ASSESMENT a) CHF ? pt had S3 gallop - ? of early pulmonary edema per CXR (10/22) ? Was placed on Lasix IV and improved. Now on Lasix and BB. - 2-D echo ordered (10/26) - A fib ? Will check EKG 4) ENDOCRINE ASSESMENT a) Type II DM - continue present Rx. - Was on Lantus 10 U/day (10/24) will increase to 15 U today (10/26). - No Bolus insulin yet as oral intake is very poor. b) Hyponatremia on admission. Na is normal today. Could be related to cirrhosis and CHF (Echo pending) - Cortisol is high (Random and AM - probably due to acute stress) - TSH is low, T4 is normal -> SICK EUTHYROID. 5) Severe protein calorie malnutrition - with total albumin is 0.6. Will order PAB level in the AM. - Pt was taking Marinol for a while and worked well for him, however it was stopped when his oral intake improved. Will start in the AM at 2.5 mg PO BID. - Needs to get his nutrition improved, if marinol works should not be stopped until his PAB is above normal. - Could add Megace to Marinol if not effective, but it worked before. 6) Electrolyte abnormalities - a) Hypermagnesemia - Mg was up to 4 will check in the AM. b) Hypercalcemia with Ca to 10.4 with albumin of 2.5. (Corrected Ca is 11.6) Bone survey - I do not see obvious punch out lesions for a Myeloma. PTH - Normal. Ca is normal today (10/25). Probably high due to DHT and immobility. 7) Jaundice with a pattern suggesting obstruction on admission - improving now. - U/S shows absent gallbladder and there is no dilatation of the ducts seen. - Cholestasis ? - From abdominal U/S (10/22) "Impression: Cirrhosis and ascites" 8 ) Depression - - Will start pt on Remeron 15mg PO QHS (10/26) New for today - ? of A fib - will check EKG - Started - Mirtazapine - Flomax - Will start tomorrow - Marinol (pt was on it before with excellent results) 10/27 12:40 Will stop Levaquin as no kevin melisa infectious etiology found and could contribute to encephalopathy. Decrease Remeron to 7.5mg nightly - hope lower dose will stimulate appetite. Continue Megace for appetite. PT/OT as pt can tolerate - likely bed activities the most he can do now. Check on pending ECHO. EKG showing NSR. Discussed with about pt's significant decline and little gains he has main despite appropriate treatment. Worry pt failing due to his cirrhosis. Discussed about potential Hospice care , but doesn't seem ready for that. Would recommend having family to see pt as I'm not optimistic about his survival ability. would be interested in having 'House Doctor' following pt at , as it is so difficult for him to go to clinic. Will recheck CMP, CBC, Ammonia in am due to cirrhosis. Continue with supportive care. 10/28/16 and son at bedside. Patient doing about the same. thinks oral intake slightly better. Responds at times. Very weak in general. Pt would open eyes slightly to command and director of perioperative services my fingers to command, but overall no spontaneous movements or verbalization. Discussed with at length about pt's current status and prognosis. With lack of meaningful improvement despite our treatment effort, due feel pt 's medical status not likely to improve. Code status reassess - pt report he has a DNR order preceding hospitalization (full code written at this admission). does feel DNR appropriate - he would not wish heroic resuscitation. Order for DNR written. Reviewed ECHO result with - normal cardiac performance. Arrest would be secondary to pt succumbing from his cirrhosis. Discuss about Hospice care - would consider this if not making improvements from medication changes initiated (Megace, Remeron) Discussed how hospice is not 'giving up,' but rather shifting the fight to work maximally for his comfort. would like to change to Dr Jorgensen in outpatient setting due to logistics of transfer in to clinic to see Dr Ashby. Will continue with therapy to try to make functional improvements - uncertain how much gains pt will make. Continue appetite stimulation. Will continue with Rocephin for antimicrobial coverage - do not feel much longer need for antibiotics warranted at this time. Will recheck CMP, CBC, Ammonia in am due to cirrhosis. 10/29/16 Discussed with at length about pt's current status and prognosis. Really have not seen any meaningful gains - overall status declining. Discussed at length about his decline - not optimistic that he will make improvement. Discussed that further therapy and interventions unlikely to be beneficial. Hospice care detailed to family - they are agreeable to meet with hospice. Would like [facility]. CM notified to help set up a meeting this afternoon. Would anticipate discharge tomorrow-do not feel further antibiotic therapy would be beneficial. Continue with current medications - would likely stop Lantus to decrease risk for hypoglycemia. Currently sugars are stable. Hold on lab draws due to potential transition to comfort care/Hospice. 10/30/16 Hospice met with family yesterday afternoon-appropriate for hospice care. Medication adjustments made at hospice request - SL Roxanol and lorazepam as needed. Levsin for secretions. Did have a very calm and peaceful night-slept well, pain controlled. Not able to take breakfast this morning. Not verbally interactive. Breathing appears comfortable. Not restless or agitate; appears peaceful. Will d/c to for hospice care with [facility]. Roxanol and lorazepam SL as needed. Stop all medications and treatments not needed to provide patient comfort. Patient terminal secondary to cirrhosis. Life expectancy days. Discussed with - emotional support provided. Will transfer via non emergent EMS - no other means of transport feasible. See orders for details. Time spent with patient: Greater than 35 minutes DVT Prophylaxis: SCD's Discharge Plan - Med Rec/Dispo Referrals/Follow Up: Mikki Jorgensen MD [Physician] - 1 Week (New to Dr Jorgensen at - pt on Hospice care. ) [place] Instructions: Hyperkalemia (GEN) Prescriptions: New Hyoscyamine Sl Tab [Levsin] 0.125 mg SL Q4HR PRN #20 tab.subl PRN Reason: Secretions LORazepam [Ativan] 0.5 mg SL Q4HR PRN #20 tablet PRN Reason: Anxiety/Air Hunger/Agitation Morphine Sulfate Oral Liq [Roxanol Oral Liq] 5 mg SL Q2H PRN #30 ml PRN Reason: Pain /Air Hunger Discontinued Atorvastatin Calcium [Lipitor] 10 mg PO DAILY #0 Potassium Chloride 10 meq PO BID #0 Polyethylene Glycol 3350 [Miralax] 17 g PO DAILY #0 Spironolactone 25 mg PO BID #0 tab Oxycodone *Ir* [Roxicodone *Ir*] 5 mg PO TID PRN PRN Reason: Pain Oxycodone/APAP 7.5/325 [Percocet 7.5/325] 1 tab PO Q4H PRN PRN Reason: Pain Bisacodyl Supp [Dulcolax] 10 mg RECTALLY Q6H PRN PRN Reason: Constipation Insulin Lispro [Humalog] 4 unit SQ TIDWM Oxycodone *Ir* [Roxicodone *Ir*] 5 mg PO BID Calmoseptine Packet [Calmoseptine] 1 applic TP BID Insulin Glargine,Hum.rec.anlog [Lantus Solostar] 14 unit SQ HS Allopurinol 300 mg PO HS #0 Sennosides [Senna] 8.6 - 17.2 mg PO BID PRN #0 tab PRN Reason: CONSTIPATION Tamsulosin HCl [Flomax] 0.4 mg PO HS #0 cap Sulfamethox/Tmp Ds *Ed Prepack [Bactrim Ds 800/160 *Ed Prepack*] 1 tab PO BID Discharge Instructions/Outpatient Orders: Final Provider Discharge Instructions Location: Determined By Patient - Disposition 04 To [facility] Home/Facility
--- NOTE | 2016-10-30 13:24 | Extended Care Facility Orders ---
Admission Orders Admit to:: ICF, Hospice Allergies/Adverse Reactions: Allergies metformin Allergy (Unknown, Verified 10/21/16 18:20) DIARRHEA Admitting Diagnosis: Terminal cirrhosis Admitting Physician: Jose M Blackburn MD Attending Physician: Dr Jorgensen Code Status: Do Not Resuscitate Anticiapted Length of Stay: 30 days or less Rehab Potential: poor Rehab Prognosis: poor Diet: 10/28/16 Dinner Regular Diet [DIET] Diet Modifications: Fluid Consistency: REGLIQU Food Consistency: PUREE Wound/Incision Care: Keep ab wound covered and dry. Change BID as prn soiling. May use Facility Protocol or Standing Orders: Yes May have flu vaccine: Yes Halfway Certification: I certify that SNF services are required to be given on an Inpatient basis because of the patients need for [facility] care on a continuing basis for the condition(s) for which he/she received inpatient hospital services prior to his/her transfer to the SNF. SNF inpatient care is necessary for the following reasons Indication for Halfway: Not Applicable (Hospice care. ) - Additional Information Resident is Aware of Diagnosis: No (Termianl cirrhosis limit his cognitive abilities) Referrals: Mikki Jorgensen MD [Physician] - 1 Week (New to Dr Jorgensen at - pt on Hospice care. ) Additional Orders: [facility] to initiate care upon arrival. Comfort care measures.
[2016-10-30] MEDS ORDERED: NEOMYCIN/POLYMYXIN/BACITRACIN OINT PACKET TP ONE (14:47)
[2016-10-30 15:32] VITALS: BP 142/76; PULSE 106; RESP 14; TEMP 96.2
== END 2016-10-30 16:30 | disposition hospice, home (50) | DRG 872 ==
LOC: ED 17:50 → MED 20:53
PROVIDERS: ADMIT Hospitalist; ATTEND Hospitalist